=== PATIENT | male | born 1980 ===

== ENCOUNTER 2019-12-12 10:41 | Emergency (ER) | payer OTHER, SELFPAY ==
[2019-12-12 10:43] VITALS: BP 153/89; PULSE 89; RESP 16; TEMP 36.4; O2SAT 99; BMI 25.3
--- NOTE | 2019-12-12 11:02 | ED_ITS ---
HPI - Back Pain/Injury General: Chief Complaint: Back Pain/Injury Stated Complaint: back pain Time Seen by Provider: 12/12/19 10:53 History of Present Illness: HPI Narrative: Patient reports that last month he had a accident where he fell and scratched his back and hurt his back with a strain. Patient reports that he has been trying to work out the muscle but it continues to be real tight and can get some relief with adjustment but then it seems to return to the discomfort. Patient appears well. Patient appears in no acute distress. Review of Systems General: Reports: 10 or more systems reviewed and unremarkable except in HPI and below Musc: Reports: back pain Physical Exam Const: COMMON NORMALS: no apparent distress and oriented x3 GENERAL APPEARANCE: cooperative HENMT: COMMON NORMALS: normocephalic, external ears normal, EAC's normal, TM's normal bilaterally and external nose normal HEAD & SCALP: normal to inspection and normocephalic FACE & SINUS: normal facial exam NOSE: external nose normal GENERAL EAR: hearing not grossly impaired EXTERNAL EAR: Yes external ears normal EXTERNAL AUDITORY CANAL: EAC's normal TYMPANIC MEMBRANE: TM's normal bilaterally MOUTH: oral and palatal mucosa normal THROAT: posterior oropharynx normal Eye: COMMON NORMALS: PERRL and EOMs intact bilaterally PUPIL: Yes PERRL Neck/C-Spine: COMMON NORMALS: full ROM and no lymphadenopathy Lymph: LYMPHATIC: no lymphedema noted Chest: COMMONS NORMALS: inspection of chest normal and palpation of chest normal Resp: COMMON NORMALS: normal respiratory effort and clear to auscultation bilaterally AUSCULTATION: clear to auscultation bilaterally Cardio: COMMON NORMALS: regular rate and regular rhythm RATE: regular rate RHYTHM: regular rhythm GI: COMMON NORMALS: normal to inspection, nondistended, normoactive bowel sounds and non-tender : COMMON NORMALS: Yes no CVA tenderness BLADDER/KIDNEY EXAM: Yes no CVA tenderness Back/Pelvis: COMMON NORMALS: no CVA tenderness LUMBAR SPINE/LOWER BACK: Yes paraspinal muscle tenderness Lumbar paraspinal muscle tenderness: left (with tightness) Extremity: COMMON NORMALS: normal to inspection GENERAL: No edema Neuro: COMMON NORMALS: oriented x3, moves all extremities and no focal motor deficits Psych: COMMON NORMALS: mental status grossly normal and cooperative Skin: COMMON NORMALS: no rashes or lesions noted GENERAL SKIN EXAM: no rashes or lesions noted Course Vital Signs: Vital signs: Vital Signs Temperature 97.5 F L 12/12/19 10:43 Pulse Rate 89 12/12/19 10:43 Respiratory Rate 16 12/12/19 10:43 Blood Pressure 153/89 12/12/19 10:43 Pulse Oximetry 99 12/12/19 10:43 MDM - Back Pain/Injury MDM Narrative: Medical decision making narrative: Patient comes in today for complaints of mid to lower back pain. On exam we note some muscle tightness and tenderness in the left paraspinous muscles of the back. No vertebral tenderness on palpation. Patient moves all extremities well. Differential diagnosis includes intervertebral disc disease, facet arthropathy, muscle strain. Reviewed exam with patient recommended treatment with anti-inflammatories and muscle relaxer. Patient should follow-up with primary care for further evaluation and probable referral to physical therapy. Discharge Plan Discharge Patient Disposition: Home, Self-Care Clinical Impression: Strain of lumbar region Qualifiers: Encounter type: initial encounter Qualified Code(s): S39.012A - Strain of muscle, fascia and tendon of lower back, initial encounter Condition: Stable Prescriptions: New diclofenac sodium 75 mg tablet,delayed release (DR/EC) 75 mg PO BID Qty: 20 RF: 0 tizanidine 4 mg capsule 4 mg PO Q8H PRN (Reason: muscle spasticity) Qty: 20 RF: 0 Discharge Orders: Discharge Order (Routine); Ordered 12/12/19 Ordered By: Damien Coughlin Discharge Diet: Usual diet Discharge Activity: Resume usual activity Activity Restrictions/Additional Instructions: Activity as tolerated Gentle stretching and range of motion exercise Follow-up with primary care for referral to PT or other recommendations Return to ER for high fever or new concerns Case management will assist for referral Coding Level of Care Code ED Secretary Of Police for Estela Foreman Exam Problem Focused
[2019-12-12] MEDS: ketorolac 30 mg/mL INJ IM (11:15)
[2019-12-12] MEDS: orphenadrine 30 mg/mL Inj 2 mL 60 MG IM (11:16)
[2019-12-12 11:23] VITALS: BP 123/99; PULSE 104; RESP 16
--- NOTE | 2019-12-15 13:18 | DCPLANNER ---
manager chemical had message to speak with patient about getting established with a primary care physician. manager chemical called [phone], spoke with Sahra, left message for patient to return briefcase sewer phone call.
== END 2019-12-12 11:23 | disposition home or self-care (01) ==
LOC: ER 11:22
PROVIDERS: Emergency Provider Nurse Practitioner Family
DX: S39.012A Strain of muscle, fascia and tendon of lower back, initial encounter (principal); W19.XXXA Unspecified fall, initial encounter
CPT/HCPCS: 96372; 99281; J1885; J2360

== ENCOUNTER 2022-07-10 06:00 | Outpatient (RCR) | payer OTHER, SELFPAY | END 2022-08-01 23:59 | disposition home or self-care (01) | LOC: SOT 06:00 | PROVIDERS: PCP Nurse Practitioner Family; Visit Provider Plastic Surgery Surgery of the Hand | DX: S67.22XD Crushing injury of left hand, subsequent encounter (principal) | CPT/HCPCS: 97110; 97166 ==

== ENCOUNTER 2022-08-02 06:00 | Outpatient (RCR) | payer OTHER, SELFPAY | END 2022-08-31 23:59 | disposition home or self-care (01) | LOC: SOT 06:00 | PROVIDERS: PCP Nurse Practitioner Family; Visit Provider Plastic Surgery Surgery of the Hand | DX: S67.22XD Crushing injury of left hand, subsequent encounter (principal); X58.XXXD Exposure to other specified factors, subsequent encounter | CPT/HCPCS: 97110; 97140 ==

== ENCOUNTER 2022-09-01 06:00 | Outpatient (RCR) | payer OTHER, SELFPAY | END 2022-10-01 23:59 | disposition home or self-care (01) | LOC: SOT 06:00 | PROVIDERS: PCP Nurse Practitioner Family; Visit Provider Plastic Surgery Surgery of the Hand | DX: S67.22XD Crushing injury of left hand, subsequent encounter (principal); X58.XXXD Exposure to other specified factors, subsequent encounter | CPT/HCPCS: 97110; 97140 ==

== ENCOUNTER 2022-09-11 10:37 | Outpatient (CLI) | payer OTHER, SELFPAY ==
--- NOTE | 2022-09-11 10:48 | XRR_ITS ---
PROCEDURE INFORMATION: Exam: XR Left Hand Exam date and time: 09/11/2022 11:00 AM Age: 41 years old Clinical indication: Injury or trauma; Other: Crushed in machine; Crushing; Left; Injury date: 05/2022; Injury details: Lt hand was crushed in a machine in May 2022, f/u; Prior surgery; Additional info: Fractures TECHNIQUE: Imaging protocol: Radiologic exam of the Left hand. Views: 3 or more views. COMPARISON: CR XR hand LT min 3V* [id number] 05/14/2022 2:04 PM FINDINGS: Bones/joints: Interval healing of fracture lines involving the 2nd through 5th finger proximal phalanges. Old healed fracture deformities of the 4th and 5th metacarpals are again noted. Small ossific densities are again seen projecting over the soft tissues in the thenar region. No new fracture or dislocation identified. Mild soft tissue swelling is present. Soft tissues: See Bones/joints finding. XR/XR hand LT min 3V* [id number] IMPRESSION: Interval healing of the fractures involving the 2nd through 5th proximal phalanges.
== END 2022-09-11 10:38 | disposition home or self-care (01) ==
LOC: RAD 10:38
PROVIDERS: PCP Nurse Practitioner Family; Visit Provider Plastic Surgery Surgery of the Hand
DX: S62.617D Displaced fracture of proximal phalanx of left little finger, subsequent encounter for fracture with routine healing (principal); S62.615D Displaced fracture of proximal phalanx of left ring finger, subsequent encounter for fracture with routine healing; S62.613D Displaced fracture of proximal phalanx of left middle finger, subsequent encounter for fracture with routine healing; S62.611D Displaced fracture of proximal phalanx of left index finger, subsequent encounter for fracture with routine healing; X58.XXXD Exposure to other specified factors, subsequent encounter
CPT/HCPCS: 73130

== ENCOUNTER 2022-10-02 06:00 | Outpatient (RCR) | payer OTHER, SELFPAY | END 2022-10-31 23:59 | disposition home or self-care (01) | LOC: SOT 06:00 | PROVIDERS: PCP Nurse Practitioner Family; Visit Provider Plastic Surgery Surgery of the Hand | DX: S67.22XD Crushing injury of left hand, subsequent encounter (principal); W23.0XXD Caught, crushed, jammed, or pinched between moving objects, subsequent encounter | CPT/HCPCS: 97018; 97110; 97140 ==

== ENCOUNTER 2022-11-01 06:00 | Outpatient (RCR) | payer OTHER, SELFPAY | END 2022-12-01 23:59 | disposition home or self-care (01) | LOC: SOT 06:00 | PROVIDERS: PCP Nurse Practitioner Family; Visit Provider Plastic Surgery Surgery of the Hand | DX: S67.22XD Crushing injury of left hand, subsequent encounter (principal); X58.XXXD Exposure to other specified factors, subsequent encounter | CPT/HCPCS: 97018; 97110; 97140 ==

== ENCOUNTER 2023-05-06 17:38 | Inpatient (IN) | payer MEDICAID, SELFPAY ==
[2023-05-06 17:42] VITALS: BP 142/96; PULSE 85; RESP 18; TEMP 36.8; O2SAT 99; BMI 25.7
--- NOTE | 2023-05-06 18:34 | ED.C_ITS ---
HPI - Psych General: Chief Complaint: Psychiatric Symptoms Stated Complaint: AMADO DOLAN Time Seen by Provider: 05/06/23 17:59 Source: patient Mode of arrival: ambulatory Limitations: no limitations History of Present Illness: This 42-year-old male presents to the ER stating that he just wants to . On further questioning, he notes that he has been having these thoughts for weeks. He notes that he walked into the ER because he is no longer safe out there . Patient moved out of his home about 3 weeks ago because there are people out there to get him. He has been homeless since then. He states that he was in senior living for 2 months and got out about a month ago. Patient adds that he was in senior care for a total of 14 years due to multiple offenses. He has an ankle monitor due to unlawful possession of firearms. Throughout my encounter with him, patient kept repeatedly stating that there were people out to get him and that if he walks out of the ER, he would not go far before someone shoots him . He states that he has not eaten since yesterday. When I offered to get him something to eat, patient flat out refused. He believes our food is poisoned. He has a past history of suicide attempt, does not currently have a psychiatrist and is not taking any medications. Associated symptoms: Reports visual hallucinations and suicidal ideation Review of Systems Const: Denies: chills, body aches or change in appetite Eyes: Denies: change in vision or eye discharge ENMT: Denies: throat pain, dental pain or nasal discharge Card: Denies: chest pain or lightheadedness : Denies: dysuria Musc: Denies: neck pain or back pain Neuro: Denies: headache(s) or weakness in extremities Psych: Reports: paranoia, visual hallucinations, suicidal ideation and other [place]/Lymph: Denies: easy bruising All/Imm: Denies: urticaria, tongue swelling or facial swelling PFSH ED PFSH: Medical History Epilepsy Family History Grandfather Cancer colon Grandmother Cancer lung Denies family history of Diabetes CAD (coronary artery disease) Anesthesia complication Bleeding disorder Social History Smoking and tobacco status: current every day smoker Alcohol intake: never Substance/Drug Use: never Lives independently: Yes Marital status: Single Current occupational status: employed Physical Exam Const: COMMON NORMALS: no acute distress, patient oriented x3, no limitations and alert HENMT: COMMON NORMALS: normocephalic HEAD & SCALP: normocephalic Eye: COMMON NORMALS: EOMs intact bilaterally Neck/C-Spine: COMMON NORMALS: full ROM and supple Chest: COMMONS NORMALS: normal inspection of the chest Resp: COMMON NORMALS: normal respiratory effort, No retractions, No use of accessory muscles and clear to auscultation bilaterally AUSCULTATION: clear to auscultation bilaterally Cardio: COMMON NORMALS: regular rate, regular rhythm and No murmurs present (Cardio) RATE: regular rate RHYTHM: regular rhythm GI: COMMON NORMALS: Normal to inspection, nondistended, normoactive bowel sounds present and non-tender : COMMON NORMALS: Yes no CVA tenderness BLADDER/KIDNEY EXAM: Yes no CVA tenderness Back/Pelvis: COMMON NORMALS: no CVA tenderness and no thoracic nor lumbar tenderness Extremity: GENERAL: Yes normal exam except as noted Neuro: COMMON NORMALS: patient oriented x3 and no focal motor deficits SENSORIUM/ORIENTATION: Yes alert Psych: COMMON NORMALS: cooperative MOOD & AFFECT: Yes anxious and Yes fearful OTHER: Patient has paranoid delusions. Course Vital Signs: Vital signs: Vital Signs Temperature 98.4 F 05/06/23 21:33 Pulse Rate 100 05/06/23 21:33 Respiratory Rate 20 H 05/06/23 21:33 Blood Pressure 131/86 05/06/23 21:33 Pulse Oximetry 95 05/06/23 21:33 Oxygen Delivery Me thod Room Air 05/06/23 22:27 MDM - Psych Medical Decision Making Medical decision making: History as above. Patient is obviously delusional and believes that people are out to kill him. He is quite irrational with his thinking. I believe that he will benefit from inpatient psychiatric evaluation and treatment. Case discussed with Dr. Rubio who accepted patient for admission. Lab Data 05/06/23 18:52 05/06/23 18:52 Laboratory Results WBC 10.5 10^3/uL (4.0-10.0) H 05/06/23 18:52 RBC 5.08 10^6/uL (4.1-5.3) 05/06/23 18:52 Hgb 15.1 g/dL (11.7-16.6) 05/06/23 18:52 Hct 45.0 % (42.0-52.0) 05/06/23 18:52 MCV 88.6 fl (80-94) 05/06/23 18:52 MCH 29.7 pg (28.0-34.0) 05/06/23 18:52 MCHC 33.6 g/dL (30.0-36.0) 05/06/23 18:52 RDW 12.3 % (12.1-15.1) 05/06/23 18:52 Plt Count 249 10^3/cmm (130-400) 05/06/23 18:52 MPV 9.5 fL (7.4-10.4) 05/06/23 18:52 Neut % (Auto) 71.1 % 05/06/23 18:52 Lymph % (Auto) 22.6 % 05/06/23 18:52 [place] % (Auto) 5.1 % 05/06/23 18:52 Eos % (Auto) 0.6 % 05/06/23 18:52 Baso % (Auto) 0.2 % 05/06/23 18:52 Neut # (Auto) 7.45 10^3/uL (1.8-7.7) 05/06/23 18:52 Lymph # (Auto) 2.4 10^3/uL (0.8-4.8) 05/06/23 18:52 [place] # (Auto) 0.5 10^3/uL (0.2-0.9) 05/06/23 18:52 Eos # (Auto) 0.1 10^3/uL (0.0-0.8) 05/06/23 18:52 Baso # (Auto) 0.0 10^3/uL (0.0-0.1) 05/06/23 18:52 Nucleated RBC % (auto) 0 % 05/06/23 18:52 Nucleated RBCs # 0.0 /100WBC 05/06/23 18:52 Sodium 138 mmol/L (136-145) 05/06/23 18:52 Potassium 3.3 mmol/L (3.5-5.1) L 05/06/23 18:52 Chloride 102 mmol/L (98-107) 05/06/23 18:52 Carbon Dioxide 22 mmol/L (22-29) 05/06/23 18:52 Anion Gap 17.3 (5-19) 05/06/23 18:52 BUN 10 mg/dL (6-20) 05/06/23 18:52 Creatinine 0.7 mg/dL (0.7-1.2) 05/06/23 18:52 GFR Calculation 123.7 mL/min (90-130) 05/06/23 18:52 Glucose 83 mg/dL (65-115) 05/06/23 18:52 Calculated Osmolality 284 mOsm/kg (285-295) L 05/06/23 18:52 Calcium 8.7 mg/dL (8.5-10.5) 05/06/23 18:52 Total Bilirubin 0.3 mg/dL (0.15-1.2) 05/06/23 18:52 AST 16 U/L (0-40) 05/06/23 18:52 ALT 15 U/L (0-41) 05/06/23 18:52 Alkaline Phosphatase 70 U/L (40-130) 05/06/23 18:52 Total Protein 7.0 g/dL (6.6-8.7) 05/06/23 18:52 Albumin 4.5 g/dL (3.5-5.2) 05/06/23 18:52 Globulin 2.5 g/dL (1.3-4.6) 05/06/23 18:52 Urine Color Light yellow (Yellow) 05/06/23 17:58 Urine Appearance Clear (CLEAR) 05/06/23 17:58 Urine pH 7 (5-7) 05/06/23 17:58 Ur Specific [place] 1.005 (1.005-1.030) 05/06/23 17:58 Urine Protein Neg (Negative) 05/06/23 17:58 Urine Glucose (UA) Norm (Normal) 05/06/23 17:58 Urine Ketones Negative (Negative) 05/06/23 17:58 Urine Blood Neg (Negative) 05/06/23 17:58 Urine Nitrate Negative (Negative) 05/06/23 17:58 Urine Bilirubin Neg (Negative) 05/06/23 17:58 Urine Urobilinogen Norm mg/dL (Negative) 05/06/23 17:58 Ur Leukocyte Esterase Negative (Negative) 05/06/23 17:58 Salicylates 0.5 mg/dL (3-10) L 05/06/23 18:52 Urine Opiates Screen Negative ng/mL (Negative) 05/06/23 17:58 Acetaminophen < 5.0 ug/mL (10-30) L 05/06/23 18:52 Ur Barbiturates Screen Negative ng/mL (Negative) 05/06/23 17:58 Ur Phencyclidine Scrn Negative ng/mL (Negative) 05/06/23 17:58 Ur Amphetamines Screen Negative ng/mL (Negative) 05/06/23 17:58 U Benzodiazepines Scrn Negative ng/mL (Negative) 05/06/23 17:58 Urine Cocaine Screen Negative ng/mL (Negative) 05/06/23 17:58 U Marijuana (THC) Screen Negative ng/mL (Negative) 05/06/23 17:58 Ethyl Alcohol < 10 mg/dL (0-10) 05/06/23 18:52 Discharge Plan Discharge Patient Disposition: Admitted As Inpatient Admit Provider: Randall Rubio Clinical Impression: Paranoid delusion Condition: Stable Coding Level of Care Code ED Emergency Dispatch Operator for Estela Foreman
[2023-05-06 19:00] LABS: Basophils % 0.2 %; Eosinophils # 0.1 10^3/uL (0.0-0.8); Eosinophils % 0.6 %; Hemoglobin 15.1 g/dL (11.7-16.6); Lymphocytes # 2.4 10^3/uL (0.8-4.8); Lymphocytes % 22.6 %; Mean Corpuscular HGB Conc 33.6 g/dL (30.0-36.0); Mean Corpuscular Hemoglobin 29.7 pg (28.0-34.0); Mean Corpuscular Volume 88.6 fl (80-94); Mean Platelet Volume 9.5 fL (7.4-10.4); Monocytes # 0.5 10^3/uL (0.2-0.9); Monocytes % 5.1 %; Neutrophils # 7.45 10^3/uL (1.8-7.7); Neutrophils % 71.1 %; Nucleated Red Blood Cells % 0 %; Platelet Count 249 10^3/cmm (130-400); Red Blood Count 5.08 10^6/uL (4.1-5.3); Red Cell Distribution Width 12.3 % (12.1-15.1); White Blood Count 10.5 10^3/uL (4.0-10.0)
[2023-05-06 19:23] LABS: Alanine Aminotransferase 15 U/L (0-41); Albumin Level 4.5 g/dL (3.5-5.2); Alkaline Phosphatase 70 U/L (40-130); Anion Gap 17.3 (5-19); Aspartate Amino Transferase 16 U/L (0-40); Blood Urea Nitrogen 10 mg/dL (6-20); Calcium 8.7 mg/dL (8.5-10.5); Carbon Dioxide 22 mmol/L (22-29); Chloride 102 mmol/L (98-107); Globulin 2.5 g/dL (1.3-4.6); Glomerular Filtration Rate 123.7 mL/min (90-130); Glucose 83 mg/dL (65-115); Osmolality Calculated 284 mOsm/kg (285-295); Potassium 3.3 mmol/L (3.5-5.1); Salicylate 0.5 mg/dL (3-10); Sodium 138 mmol/L (136-145); Total Bilirubin 0.3 mg/dL (0.15-1.2)
[2023-05-06 19:25] LABS: Acetaminophen < 5.0 ug/mL (10-30); Alcohol Level < 10 mg/dL (0-10)
[2023-05-06 20:03] LABS: Add Urine Microscopic? NO; Charge for UA Resulting for Rev
[2023-05-06 20:05] LABS: Bilirubin Urine Neg (Negative); Blood Urine Neg (Negative); Glucose Urine UA Norm (Normal); Ketones Urine Negative (Negative); Leukocyte Esterase Urine Negative (Negative); Nitrate Urine Negative (Negative); Protein Urine Neg (Negative); Specific Gravity, Urine 1.005 (1.005-1.030); Urine Appearance Clear (CLEAR); Urine Color Light yellow (Yellow); Urobilinogen Urine Norm (Negative); pH Urine 7 (5-7)
[2023-05-06 20:14] LABS: Amphetamines Screen Urine Negative (Negative); Barbiturates Screen Urine Negative (Negative); Benzodiazepines Screen Urine Negative (Negative); Cocaine Screen Urine Negative (Negative); Opiate Screen Urine Negative (Negative); PCP Screen Urine Negative (Negative); THC Screen Urine Negative (Negative)
--- NOTE | 2023-05-06 20:23 | PC.NURSE ---
Pt served copy of 96 rights. Pt voiced concern regarding ankle bracelet. Pt requested this nurse and security to contact Dora stevezak Heathertj Prescott [phone]. Heather states that ankle bracelet is a tamper resistance device will will 'beep' if pt tries to take it off or apart. Heather states the device does need to charge daily and a complete charge should last up to 24 hours. Heather states the bracelet light will turn red and vibrate when needing a charged.
[2023-05-06 21:33] VITALS: BP 131/86; PULSE 100; RESP 20; TEMP 36.9; O2SAT 95
--- NOTE | 2023-05-06 22:48 | PC.NURSE ---
Pt admitted to [facility], brought by security and RN via w/c. Pt is very anxious, and guarded states I just don't feel like living anymore . This has been going on for a minute . Pt denies all medication or drugs prescribed or otherwise being used. Pt states I can't be in a room w/anyone else, I will hurt them . Pt presents w/ankle bracelet monitor to E, for which he states he is on probation for unlawful possession of a firearm . During admission pt also states that he can't have a roommate d/t this is going to be his home from now own. Pt does admit to hearing voices telling him they're going to kill you and that he is hallucinating however when asked to describe what he is seeing he states everything . Pt admits that he took pills earlier today to try to kill himself, but didn't tell anybody , pt did not admit this in ER. When asked what the pt took, he stated I won't admit to what . Pt remains paranoid, anxious, and guarded. Pt did eat two turkey sandwiches, a bag of doritos, and drank a lemonaid.
[2023-05-07 06:00] VITALS: BP 133/84; PULSE 75; RESP 18; TEMP 36.6; O2SAT 97
--- NOTE | 2023-05-07 09:14 | PC.OT ---
OT EVALUATION HELD THIS DATE PER NURSING; PER NURSING-PATIENT WAS THREATENING TOWARDS STAFF LAST EVENING; IS SLEEPING NOW.
--- NOTE | 2023-05-07 09:46 | PC.NURSE ---
Addendum entered by Hali Escalante RN 05/07/23 10:00: ALSO, DURING THIS ASSESSMENT PT WAS ASKED ABOUT VISUAL AND AUDIO HALLUCINATIONS. PT STATES THAT HE SEES MOVEMENTS AND HE HEARS SOMEONE TELLING HIM THAT THEY ARE GOING TO KILL HIM. PT DENIES MEDICATION AT THIS TIME. Original Note: DURING NURSING SHIFT ASSESSMENT PT WAS COOPERATIVE. PT BECAME AGITATED WHEN ASKED IF WAS THINKING OF HURTING HIMSELF OR OTHERS PT STATED IF I HAVE TO HURT SOMEONE I WILL . THIS NURSE REPHRASED THE QUESTION AND STATED ARE YOU PLANNING ON HURTING SOMEONE IN THIS MOMENT? PT STATED NO AND WHAT DO YOU MEAN DO I WAN TO HURT MYSELF? THATS WHY I CAME HERE. THIS NURSE EDUCATED THE PT THAT THIS IS AN ASSESSMENT QUESTION AND WILL BE ASKED TO HIM FREQUENTLY HERE TO HELP ASSESS HIS PROGRESS HERE. PT THEN STATED YES I WANT TO HURT MYSELF, BUT NO I WILL NOT DO IT HERE. PT CURRENT NEEDS ARE MET.
[2023-05-07] MEDS: nicotine 2 mg Gum BUCCAL ×4 (13:06→19:27)
[2023-05-07 14:00] VITALS: BP 127/79; PULSE 78; RESP 18; TEMP 36.9; O2SAT 97
--- NOTE | 2023-05-07 17:05 | P.NPUHP_ITS ---
Providers/Chief Complaint Admitting Physician: Randall Rubio MD Chief Complaint: MHE, SI HPI NPU History of Present Illness David Cohen is a 42 year old male who presented to the emergency department stating that he wished to . He was admitted to the neuropsychiatric unit for further evaluation and treatment involuntarily. He had reported that he has been having thoughts of killing himself for several weeks. He was reporting that he had left his home about 1 month ago stating that people were trying to hurt him. He had reported having lived with a friend afterwards for 3 weeks but had been truly homeless for about 1 week. He states that he has been repeatedly concerned that people are trying to shoot him dad and stated that he has been thinking about doing it himself in stead of him being shot by them. He had reported that he had felt that he had been poisoned and reported that he has been seeing things. The patient had reported no recent drug or alcohol use. His urine was negative for any drugs or alcohol. He reports that he has been on an ankle monitor because he was a threat to flee the state and stated that he has had numerous incarcerations for a myriad of offenses. He had reported recently attempting to work and stated that he had worked 1 day and felt that the people there had poisoned him. The patient was a less than adequate historian. Patient had reported significant weight loss stating that he had been concerned about other people poisoning him. Past psychiatric history: He had reported having 1 previous hospitalization psychiatrically. He denied any history of outpatient psychiatric treatment. Allergies: No known drug allergies medical history: None. Surgical history: Left hand reportedly crushed in a work-related injury. Current medications: None Legal history: He currently has an ankle monitor on and reports a history of multiple years spent in incarcerated. Drug and alcohol history: He had reported the use of alcohol in the past but r eports no current use of alcohol or illicit drugs. He had intimated possible use of illicit drugs during his adolescence. Social history: He was raised in [place]. He had lived with his father after his parents are . He had dropped out of school. He had stated having some problems with learning and states that he had been placed on Ritalin for problems with his attention span. He has 1 brother and 2 stepsiblings. He reports that he is currently unemployed and has struggled with maintaining a job. He reports that he moved to [place] approximately 6 years ago. He did not endorse any history of sexual physical or emotional abuse. Meds NPU Home Medications Medication Instructions Recorded Confirmed Last Taken Type No Known Home Medications 05/06/23 05/06/23 Unknown History Allergies Allergy/AdvReac Type Severity Reaction Status Date / Time No Known Allergies Allergy Verified 05/06/23 17:42 PFSH NPU PFSH: Medical History Epilepsy Family History Grandfather Cancer colon Grandmother Cancer lung Denies family history of Diabetes CAD (coronary artery disease) Anesthesia complication Bleeding disorder Social History Smoking and tobacco status: current every day smoker Alcohol intake: never Substance/Drug Use: never Lives independently: Yes Marital status: Single Current occupational status: employed Mental Status Exam MSE Comments: Is a healthy male who appeared his stated age he was sitting in his bedroom with intermittent eye contact with no evidence of any abnormal involuntary motor movements tics or tremors. He was a relatively poor historian and repeatedly asking questions and asking why do want to know . His speech was normal in regards to rate rhythm and prosody. There was evidence of psychomotor agitation. He described his mood as upset. His affect was flat. He endorsed suicidal ideation with no active plan. He denied any homicidal ideation although he stated that he would kill someone if they were roommate of his. There was clear evidence of delusional thinking and active paranoia he had endorsed auditory hallucinations and did at times appear to be responding to internal stimuli. His insight and judgment are impaired. His impulse control is poor. His recent remote memory are grossly intact though not formally teste d. His attention span was variable. Vitals/I&O/Wt Last Vital Signs Temp 98.4 F 05/07/23 14:00 Pulse 78 05/07/23 14:00 Resp 18 05/07/23 14:00 BP 127/79 05/07/23 14:00 Pulse Ox 97 05/07/23 14:00 O2 Del Method Room Air 05/07/23 06:00 Weight last 48 hrs Weight 86.183 kg Data NPU 05/06/23 18:52 05/06/23 18:52 A&P Assessment and plan (1) Paranoid delusion: (2) Psychotic disorder: Plan This is a 42-year-old male with a history of previous treatment for ADHD admitted with active psychotic symptoms with active paranoia and bizarre delusions. He is involuntarily hospitalized and we will continue to monitor the patient. He is currently refusing medications. 1.? ?Engage? patient in individual ,milieu, and group therapy ?2. ? We will attempt to gather collateral information from previous providers ?3. ? TO-15 minute checks on the unit. ?4.? Recommend sober living treatment at the highest level of care to which the patient is willing to commit. Involuntary Hold Information 96 Hour Hold: 96 Hour Involuntary Admission: Yes 96 Hour Hold Ending Date: 05/10/23 96 Hour Hold Ending Time: 20:00 Attestations NPU Medical Necessity Statement*: Inpatient hospitalization is medically necessary and deemed to be the clinically appropriate intervention at this time. We will initiate medications and make changes as indicated.? He will be in the hospital for over 2 midnights.? His likely length of stay 7-10 days. Coding Level of Care Code Acute Code for [facility] Fwd Diagnoses Paranoid delusion F22 Psychotic disorder F29
[2023-05-07 22:00] VITALS: BP 131/91; PULSE 74; RESP 16; TEMP 36.6; O2SAT 99
[2023-05-08 06:00] VITALS: BP 123/80; PULSE 89; RESP 15; TEMP 36.7; O2SAT 96
--- NOTE | 2023-05-08 09:28 | PC.NURSE ---
PT CURRENTLY STATES THAT HE IS HEARING PEOPLE TELL HIM HE IS A MAN. PT ALSO STATES THAT HE IS STILL THINKING OF HURTING HIMSELF. PT STATES THAT HE DOES NOT CURRENTLY HAVE A PLAN TO HURT HIMSELF ON THIS UNIT. PT STATES THAT HE STILL HAS A PLAN FOR OUTSIDE THE UNIT. PT UNWILLINGLY TO EXPLAIN THEN STATED I JUST WANT TO SLEEP RIGHT NOW.
[2023-05-08] MEDS: nicotine 2 mg Gum BUCCAL ×4 (11:21→20:52)
[2023-05-08 14:00] VITALS: BP 143/92; PULSE 86; RESP 17; TEMP 36.6; O2SAT 97
--- NOTE | 2023-05-08 16:42 | W.PM.NPUPNS ---
Subjective NPU Subjective: The patient is a 42-year-old white male admitted with psychotic disorder not otherwise specified with active paranoia and repeated thoughts that others were trying to kill him. He reported that he was not planning on harming anyone else but still stated that he wanted to . He remained minimally cooperative and was isolating himself in the room. He had continued to appear somewhat hostile and paranoid while repeatedly asking the web content writer of this note was asking so many questions. He reported that he had difficulties with sleep and would like something to help with his worries and thoughts. He had not engaged in any aggression while on the milieu and had been able to consume food and water on the unit with no complaints about food being poisoned. He had continue to report that he remained concerned that others would seek him out here in the hospital. Mental Status Exam MSE Comments: Is a healthy male who appeared his stated age intense eye contact with no evidence of any abnormal involuntary motor movements tics or tremors. He had multiple tattoos all over his body and on his face. He was a relatively poor historian and was guarded on interview. His speech was normal in regards to rate rhythm and prosody. There was evidence of psychomotor agitation. He described his mood as depressed.. His affect was blunted. He endorsed suicidal ideation with no active plan. He denied any homicidal ideation. There was clear evidence of delusional thinking and active paranoia. He did not endorse any auditory hallucinations although at times he appeared to be responding to internal stimuli. His insight and judgment are impaired. His impulse control is poor. His recent remote memory are grossly intact though not formally tested. His attention span was variable. Vitals/I&O/Wt Last Vital Signs Temp 97.8 F 05/08/23 14:00 Pulse 86 05/08/23 14:00 Resp 17 05/08/23 14:00 BP 143/92 05/08/23 14:00 Pulse Ox 97 05/08/23 14:00 O2 Del Method Room Air 05/08/23 06:00 Weight last 48 hrs Weight 86.183 kg Data NPU 05/06/23 18:52 05/06/23 18:52 A&P Assessment and plan (1) Paranoid delusion: (2) Psychotic disorder: Plan This is a 42-year-old male with a history of previous treatment for ADHD admitted with active psychotic symptoms with active paranoia and bizarre delusions. He is involuntarily hospitalized and we will continue to monitor the patient. He is currently refusing medications. 1.? ?Engage? patient in individual ,milieu, and group therapy ?2. ? Add zyprexa 10mg at night to target psychosis. ?3. ? TO-15 minute checks on the unit. ?4.? Recommend sober living treatment at the highest level of care to which the patient is willing to commit. Involuntary Hold Information 96 Hour Hold: 96 Hour Involuntary Admission: Yes 96 Hour Hold Ending Date: 05/10/23 96 Hour Hold Ending Time: 20:00 Attestations NPU Medical Necessity Statement*: Inpatient hospitalization is medically necessary and deemed to be the clinically appropriate intervention at this time. We will initiate medications and make changes as indicated.? ? His likely length of stay 7-10 days. Coding Level of Care Code Acute Code for g Fwd Diagnoses Paranoid delusion F22 Psychotic disorder F29
[2023-05-08] MEDS: OLANZapine 10 mg TABLET PO (20:49)
[2023-05-08] MEDS: hyDROXYzine 25 mg Capsule 50 MG PO (20:52)
[2023-05-08 21:10] VITALS: BP 145/105; PULSE 89; RESP 18; TEMP 36.9; O2SAT 97
[2023-05-09 06:00] VITALS: RESP 17
[2023-05-09 14:00] VITALS: BP 127/71; PULSE 106; RESP 16; TEMP 36.6; O2SAT 98
--- NOTE | 2023-05-09 16:51 | P.NPUPN_ITS ---
Subjective NPU Subjective: The patient is a 42-year-old white male admitted with psychotic disorder not otherwise specified with active paranoia and repeated thoughts that others were trying to kill him. Patient isolated himself on the milieu. He reported that he continued to be fearful that if he left the hospital he would be . He had also endorsed having thoughts of hurting himself but did not have any thoug hts of hurting anyone else. He had been noncompliant in regards to attending groups. He had normal appetite and did not feel that his food was poisoned here. He had acknowledged being safe here and stated that he had wanted to go home to [place] as his mother had not been doing well. He had spoken with his mother but continued to be hesitant about providing authorization for the team to speak with her. Mental Status Exam MSE Comments: Is a healthy male who appeared his stated age with an intense eye contact with no evidence of any abnormal involuntary motor movements tics or tremors. He had multiple tattoos all over his body and on his face. He was a relatively poor historian and remained very guarded on interview. His speech was normal in regards to rate rhythm and prosody. There was evidence of psychomotor agitation. He described his mood as depressed. His affect was blunted. He endorsed suicidal ideation with no active plan. He denied any homicidal ideation. There was clear evidence of delusional thinking and active paranoia with ideas of reference. He did not endorse any auditory hallucinations although at times he appeared to be responding to internal stimuli. His insight and judgment are impaired. His impulse control is poor. His recent and remote memory are grossly intact though not formally tested. His attention span was variable. Vitals/I&O/Wt Last Vital Signs Temp 97.8 F 05/09/23 14:00 Pulse 106 H 05/09/23 14:00 Resp 16 05/09/23 14:00 BP 127/71 05/09/23 14:00 Pulse Ox 98 05/09/23 14:00 O2 Del Method Room Air 05/09/23 14:00 Data NPU 05/06/23 18:52 05/06/23 18:52 A&P Assessment and plan (1) Paranoid delusion: (2) Psychotic disorder: Plan This is a 42-year-old male with a history of previous treatment for ADHD admitted with active psychotic symptoms with active paranoia and bizarre delusions. He is involuntarily hospitalized and we will continue to monitor the patient. He is currently refusing medications. 1.? ?Engage? patient in individual ,milieu, and group therapy ?2. ? Reduce zyprexa 7.5mg at night with addition of Invega 3mg daily in daytime (consider [facility] use of IM medications) ?3. ? TO-15 minute checks on the unit. ?4.? Recommend sober living treatment at the highest level of care to which the patient is willing to commit. Involuntary Hold Information 96 Hour Hold: 96 Hour Involuntary Admission: Yes 96 Hour Hold Ending Date: 05/10/23 96 Hour Hold Ending Time: 20:00 Attestations NPU Medical Necessity Statement*: Inpatient hospitalization is medically necessary and deemed to be the clinically appropriate intervention at this time. We will initiate medications and make changes as indicated.? ? His likely length of stay 7-10 days. Coding Level of Care Code Acute [facility] Paranoid delusion F22 Psychotic disorder F29
[2023-05-09] MEDS: nicotine 2 mg Gum BUCCAL ×2 (17:04→20:35)
[2023-05-09] MEDS: OLANZapine 5 mg TABLET 7.5 MG PO (20:33)
[2023-05-09] MEDS: hyDROXYzine 25 mg Capsule 50 MG PO (20:34)
[2023-05-09 22:00] VITALS: BP 143/85; PULSE 94; RESP 17; O2SAT 96
[2023-05-10] MEDS: paliperidone ER 3 mg Tablet PO ×2 (09:09→17:14)
--- NOTE | 2023-05-10 13:39 | P.NPUPN_ITS ---
Subjective NPU Subjective: The patient is a 42-year-old white male admitted with psychotic disorder not otherwise specified with active paranoia and repeated thoughts that others were trying to kill him. The patient had reported some side effects including constipation and stated that he had some difficulties with pain in his right flank. He stated that he had been feeling more safe here but continued to report that he would be if he were to step outside of the hospital as he had reported that others were waiting for him. The patient had been attending groups today. He reported no concerns about food and states that he had continued to feel worried about his future. He reported that he had communicate d with his mother in [place] and continued to be worried about her care. He had been compliant with medications. Mental Status Exam MSE Comments: Is a healthy male who appeared his stated age with an intense eye contact with no evidence of any abnormal involuntary motor movements tics or tremors. He had multiple tattoos all over his body and on his face. He was less guarded and hostile on interview. His speech was normal in regards to rate rhythm and prosody. There was evidence of psychomotor agitation. He described his mood as depressed. His affect was blunted. He endorsed suicidal ideation with no active plan. He denied any homicidal ideation. There was clear evidence of delusional thinking and active paranoia with ideas of reference. He did not endorse any auditory hallucinations although he did at times appear to be responding to internal stimuli. His insight and judgment are impaired. His impulse control is poor. His recent and remote memory are grossly intact tho ugh not formally tested. His attention span was variable. Vitals/I&O/Wt Last Vital Signs Temp 97.8 F 05/09/23 14:00 Pulse 94 05/09/23 22:00 Resp 17 05/09/23 22:00 BP 143/85 05/09/23 22:00 Pulse Ox 96 05/09/23 22:00 O2 Del Method Room Air 05/09/23 22:00 Data NPU 05/06/23 18:52 05/06/23 18:52 A&P Assessment and plan (1) Paranoid delusion: (2) Psychotic disorder: Plan This is a 42-year-old male with a history of previous treatment for ADHD admitted with active psychotic symptoms with active paranoia and bizarre delu sions. He is involuntarily hospitalized and we will continue to monitor the patient. He is currently refusing medications. 1.? ?Engage? patient in individual ,milieu, and group therapy ?2. ? Reduce zyprexa 5mg at night with Invega 3mg daily in daytime (consider [facility] use of IM invega ) ?3. ? TO-15 minute checks on the unit. Court hearing for continued stay. ?4.? Recommend sober living treatment at the highest level of care to which the patient is willing to commit. 5. Urinalysis, Chem panel Involuntary Hold Information 96 Hour Hold: 96 Hour Involuntary Admission: Yes 96 Hour Hold Ending Date: 05/10/23 96 Hour Hold Ending Time: 20:00 Attestations NPU Medical Necessity Statement*: Inpatient hospitalization is medically necessary and deemed to be the clinically appropriate intervention at this time. We will initiate medications and make changes as indicated.? ? His likely length of stay 7-10 days. Coding Level of Care Code Acute Code for [facility] Fwd Diagnoses Paranoid delusion F22 Psychotic disorder F29
[2023-05-10 14:00] VITALS: BP 120/73; PULSE 105; RESP 20; TEMP 36.8; O2SAT 97
[2023-05-10] MEDS: nicotine 2 mg Gum BUCCAL ×2 (17:44→20:34)
[2023-05-10] MEDS: hyDROXYzine 25 mg Capsule 50 MG PO (18:38)
[2023-05-10] MEDS: OLANZapine 5 mg TABLET PO (20:32)
[2023-05-10 21:08] VITALS: BP 129/87; PULSE 102; RESP 16; TEMP 37.1; O2SAT 96
[2023-05-11 06:00] VITALS: BP 129/83; PULSE 76; RESP 14; TEMP 36.3; O2SAT 95
[2023-05-11] MEDS: paliperidone ER 3 mg Tablet PO ×2 (08:27→17:35)
[2023-05-11] MEDS: nicotine 2 mg Gum BUCCAL (08:27)
--- NOTE | 2023-05-11 08:31 | PC.NURSE ---
PT CURRENTLY DENIES SI/HI/VH. PT DOES ENDORSE AH, WHEN ASKED WHAT THEY WERE SAYING PT STATED THEY ARE TELLING THEY WILL KILL ME. PT WAS CALM AND COOPERATIVE WITH ASSESSMENT AND WILLING TO ANSWER QUESTIONS. PT WAS WILLING TO TAKE MORNING DOSE OF INVEGA.
--- NOTE | 2023-05-11 12:04 | P.NPUPN_ITS ---
Subjective NPU Subjective: The patient is a 42-year-old white male admitted with psychotic disorder not otherwise specified with active paranoia and repeated thoughts that others were trying to kill him. He had stated that he had been hearing a voice and has had that was telling him that others were trying to kill him and stated that this was different than his own voice. The patient reported back pain and reported that he remained constipated. He states that he is worried about everything . He had continue to isolate himself on the milieu with limited communication with his peers on the unit. The patient had reported some side effects including constipation and stated that he had some difficulties with pain in his right flank. He continued to appear unwilling to discuss issues in his life any further although he had stated that he was concerned about his mother at this time. Mental Status Exam MSE Comments: Is a healthy male who appeared his stated age with an intense eye contact with no evidence of any abnormal involuntary motor movements tics or tremors. He had multiple tattoos all over his body and on his face. He he remained guarded on interview. His speech was normal in regards to rate rhythm and prosody. There was evidence of psychomotor agitation. He described his mood as worried. His affect was blunted. He endorsed suicidal ideation with no active plan. He denied any homicidal ideation. There was clear evidence of delusional thinking and active paranoia with ideas of reference. He had endorsed auditory hallucinations stating that others were trying to kill him. He did not appear to be responding to internal stimuli during the interview. Was notable his insight and judgment are impaired. His impulse control is poor. His recent and remote memory are grossly intact though not formally tested. His attention span was variable. Vitals/I&O/Wt Last Vital Signs Temp 97.3 F L 05/11/23 06:00 Pulse 76 05/11/23 06:00 Resp 14 05/11/23 06:00 BP 129/83 05/11/23 06:00 Pulse Ox 95 05/11/23 06:00 O2 Del Method Room Air 05/09/23 22:00 Data NPU 05/06/23 18:52 05/06/23 18:52 A&P Assessment and plan (1) Paranoid delusion: (2) Psychotic disorder: Plan This is a 42-year-old male with a history of previous treatment for ADHD admitted with active psychotic symptoms with active paranoia and bizarre delusions. He is involuntarily hospitalized and we will continue to monitor the patient. He is currently refusing medications. 1.? ?Engage? patient in individual ,milieu, and group therapy ?2. ? Reduce zyprexa 2.5mg at night with Invega increase to 3mg bid in daytime ([facility] of [facility] invega ) ?3. ? TO-15 minute checks on the unit. Court hearing for continued stay. ?4.? Recommend sober living treatment at the highest level of care to which the patient is willing to commit. 5. Urinalysis, Chem panel Involuntary Hold Information 96 Hour Hold: 96 Hour Involuntary Admission: Yes 96 Hour Hold Ending Date: 05/10/23 96 Hour Hold Ending Time: 20:00 Attestations NPU Medical Necessity Statement*: Inpatient hospitalization is medically necessary and deemed to be the clinically appropriate intervention at this time. We will initiate medications and make changes as indicated.? ? His likely length of stay 7-10 days. Coding Level of Care Code Acute Code for [facility] Diagnoses Paranoid delusion F22 Psychotic disorder F29
[2023-05-11] MEDS: hyDROXYzine 25 mg Capsule 50 MG PO (12:50)
[2023-05-11 12:55] LABS: Basophils % 0.3 %; Eosinophils # 0.1 10^3/uL (0.0-0.8); Eosinophils % 1.2 %; Hematocrit 46.9 % (42.0-52.0); Lymphocytes # 1.7 10^3/uL (0.8-4.8); Lymphocytes % 23.8 %; Mean Corpuscular Hemoglobin 29.8 pg (28.0-34.0); Mean Corpuscular Volume 93.1 fl (80-94); Mean Platelet Volume 9.8 fL (7.4-10.4); Monocytes # 0.5 10^3/uL (0.2-0.9); Monocytes % 6.6 %; Neutrophils # 4.95 10^3/uL (1.8-7.7); Neutrophils % 67.8 %; Nucleated Red Blood Cells % 0 %; Platelet Count 219 10^3/cmm (130-400); Red Blood Count 5.04 10^6/uL (4.1-5.3); Red Cell Distribution Width 12.7 % (12.1-15.1); White Blood Count 7.3 10^3/uL (4.0-10.0)
[2023-05-11 12:56] LABS: Add Urine Microscopic? NO; Charge for UA Resulting for Rev
[2023-05-11 13:03] LABS: Bilirubin Urine Neg (Negative); Blood Urine Neg (Negative); Glucose Urine UA Norm (Normal); Ketones Urine Negative (Negative); Leukocyte Esterase Urine Negative (Negative); Nitrate Urine Negative (Negative); Protein Urine Neg (Negative); Urine Appearance Clear (CLEAR); Urine Color Straw (Yellow); Urobilinogen Urine Norm (Negative); pH Urine 6 (5-7)
[2023-05-11] MEDS: docusate sodium 100 mg Capsule PO (13:12)
[2023-05-11 14:00] VITALS: BP 133/87; PULSE 93; RESP 16; TEMP 36.8; O2SAT 98
[2023-05-11] MEDS: OLANZapine 5 mg TABLET 2.5 MG PO (19:51)
[2023-05-11 20:13] VITALS: BP 132/85; PULSE 94; RESP 18; TEMP 37.3; O2SAT 99
[2023-05-12 06:00] VITALS: BP 134/92; PULSE 89; RESP 20; TEMP 36.7; O2SAT 96
[2023-05-12] MEDS: docusate sodium 100 mg Capsule PO (10:01)
[2023-05-12] MEDS: paliperidone ER 3 mg Tablet PO ×2 (10:01→17:45)
--- NOTE | 2023-05-12 12:06 | P.NPUPN_ITS ---
Subjective NPU Subjective: The patient is a 42-year-old white male admitted with psychotic disorder not otherwise specified with active paranoia and repeated thoughts that others were trying to kill him. The patient did continue to complain about back pain. He had reported that he continued to worry about everything. He had been more social on the unit. He continued to state that there were multiple voices that were telling him that he was in danger. He reported not having suicidal thoughts currently but continued to report feeling that his life was in danger. He had reported that his thoughts were moving fast and stated that there were 2 different voices that were communicating with him with no change in the frequency or intensity of the voices. Mental Status Exam MSE Comments: Is a healthy male who appeared his stated age with an intense eye contact with no evidence of any abnormal involuntary motor movements tics or tremors. He had multiple tattoos all over his body and on his face. He he remained guarded on interview. His speech was normal in regards to rate rhythm and prosody. There was evidence of continuous psychomotor agitation. He described his mood as stressed. His affect was blunted. He endorsed no suicidal ideation with no active plan today. He denied any homicidal ideation. There was clear evidence of delusional thinking and active paranoia with ideas of reference. He had endorsed multiple auditory hallucinations stating that others would kill him if he left here. He did appear to be responding to internal stimuli during the interview. His insight and judgment are impaired. His impulse control is poor. His recent and remote memory are grossly intact though not formally tested. His attention span was variable. Vitals/I&O/Wt Last Vital Signs Temp 98.0 F 05/12/23 06:00 Pulse 89 05/12/23 06:00 Resp 20 H 05/12/23 06:00 BP 134/92 05/12/23 06:00 Pulse Ox 96 05/12/23 06:00 O2 Del Method Room Air 05/12/23 06:00 Weight last 48 hrs Weight 92.714 kg Data NPU 05/11/23 12:30 05/06/23 18:52 A&P Assessment and plan (1) Paranoid delusion: (2) Psychotic disorder: Plan This is a 42-year-old male with a history of previous treatment for ADHD admitted with active psychotic symptoms with active paranoia and bizarre delusions. He is involuntarily hospitalized and we will continue to monitor the patient. He is currently refusing medications. 1.? ?Engage? patient in individual ,milieu, and group therapy ?2. ? D/C zyprexa, Invega 3mg bid with plan for IM invega ?3. ? TO-15 minute checks on the unit. Court hearing for continued stay tommorow. ?4.? Recommend sober living treatment at the highest level of care to which the patient is willing to commit. 5. Urinalysis, Chem panel-negative, Involuntary Hold Information 96 Hour Hold: 96 Hour Involuntary Admission: Yes 96 Hour Hold Ending Date: 05/10/23 96 Hour Hold Ending Time: 20:00 Attestations NPU Medical Necessity Statement*: Inpatient hospitalization is medically necessary and deemed to be the clinically appropriate intervention at this time. We will initiate medications and make changes as indicated.? ? His likely length of stay 7-10 days. Coding Level of Care Code Acute Code for [facility] Fwd Diagnoses Paranoid delusion F22 Psychotic disorder F29
[2023-05-12] MEDS: nicotine 2 mg Gum BUCCAL ×2 (13:30→18:05)
[2023-05-12 14:00] VITALS: BP 111/81; PULSE 95; RESP 16; TEMP 37; O2SAT 99
[2023-05-12 20:56] VITALS: BP 135/86; PULSE 98; RESP 18; TEMP 36.9; O2SAT 98
[2023-05-12] MEDS: hyDROXYzine 25 mg Capsule 50 MG PO (21:31)
--- NOTE | 2023-05-12 21:32 | PC.NURSE ---
pt requested anxiety med, Vistaril 50mg po given.
[2023-05-13 06:00] VITALS: BP 137/92; PULSE 91; RESP 18; TEMP 36.5; O2SAT 99
[2023-05-13] MEDS: docusate sodium 100 mg Capsule PO (08:18)
[2023-05-13] MEDS: paliperidone ER 3 mg Tablet PO ×2 (08:18→20:07)
--- NOTE | 2023-05-13 08:20 | PC.NURSE ---
shift assessment stated having some hallucinations but wouldn't elaborate further. med compliant.
[2023-05-13 13:06] VITALS: BP 124/84; PULSE 97; RESP 16; TEMP 36.4; O2SAT 97
[2023-05-13] MEDS: hyDROXYzine 25 mg Capsule 50 MG PO ×2 (13:18→20:06)
--- NOTE | 2023-05-13 13:18 | PC.NURSE ---
PRN VISTARIL 50 MG GIVEN PO PER PT C/O STATED ANXIETY
--- NOTE | 2023-05-13 16:10 | P.NPUPN_ITS ---
Subjective NPU Subjective: The patient is a 42-year-old white male admitted with psychotic disorder not otherwise specified with active paranoia and repeated thoughts that others were trying to kill him. The patient was placed on [address] hearing this afternoon. He continued to report hearing 2 different voices in his head telling him that he was going to if he left here. He had reported feeling very worried . He reported no side effects from his medication. He had mostly stayed to himself on the milieu. He had continued report having suicidal thoughts as well. Mental Status Exam MSE Comments: Is a healthy male who appeared his stated age with an intense eye contact with no evidence of any abnormal involuntary motor movements tics or tremors. He had multiple tattoos all over his body and on his face. He he remained guarded on interview. His speech was normal in regards to rate rhythm and monotone in quality. There was evidence of continuous psychomotor agitation. He described his mood as anxious. His affect was blunted. He endorsed suicidal ideation today with no active plan. He denied any homicidal ideation. There was clear evidence of delusional thinking and active paranoia with ideas of reference. He had endorsed multiple auditory hallucinations stating that others would kill him if he left here. He did appear to be responding to internal stimuli during the interview. His insight and judgment are impaired. His impulse control is poor. His recent and remote memory are grossly intact though not formally tested. His attention span was variable. His insight is poor. Vitals/I&O/Wt Last Vital Signs Temp 97.6 F 05/13/23 13:06 Pulse 97 05/13/23 13:06 Resp 16 05/13/23 13:06 BP 124/84 05/13/23 13:06 Pulse Ox 97 05/13/23 13:06 O2 Del Method Room Air 05/12/23 14:00 Weight last 48 hrs Weight 92.714 kg Data NPU 05/11/23 12:30 05/06/23 18:52 A&P Assessment and plan (1) Paranoid delusion: (2) Psychotic disorder: Plan This is a 42-year-old male with a history of previous treatment for ADHD a dmitted with active psychotic symptoms with active paranoia and bizarre delusions. He is involuntarily hospitalized and we will continue to monitor the patient. He is currently refusing medications. 1.? ?Engage? patient in individual ,milieu, and group therapy ?2. ? Continue Invega 6mg/day with plan for IM invega ?3. ? TO-15 minute checks on the unit. Court hearing for continued stay tommorow. ?4.? Recommend sober living treatment at the highest level of care to which the patient is willing to commit. 5. Urinalysis, Chem panel-negative for infection. Involuntary Hold Information 96 Hour Hold: 96 Hour Involuntary Admission: Yes 96 Hour Hold Ending Date: 05/10/23 96 Hour Hold Ending Time: 20:00 Attestations NPU Medical Necessity Statement*: Inpatient hospitalization is medically necessary and deemed to be the clinically appropriate intervention at this time. We will initiate medications and make changes as indicated.? ? His likely length of stay is 7-10 days. Coding Level of Care Code Acute Code for [facility] Fwd Diagnoses Paranoid delusion F22 Psychotic disorder F29
[2023-05-13 20:28] VITALS: BP 132/91; PULSE 97; RESP 18; TEMP 36.7; O2SAT 99
[2023-05-14 06:00] VITALS: BP 144/88; PULSE 104; RESP 18; TEMP 36.6; O2SAT 99
[2023-05-14] MEDS: nicotine 2 mg Gum BUCCAL (09:52)
[2023-05-14] MEDS: hyDROXYzine 25 mg Capsule 50 MG PO ×3 (09:53→20:15)
[2023-05-14] MEDS: paliperidone ER 3 mg Tablet PO (09:53)
[2023-05-14] MEDS: docusate sodium 100 mg Capsule PO (09:53)
[2023-05-14 14:00] VITALS: BP 133/87; PULSE 84; RESP 16; TEMP 36.8; O2SAT 98
--- NOTE | 2023-05-14 14:57 | P.NPUPN_ITS ---
Subjective NPU Subjective: The patient is a 42-year-old white male admitted with psychotic disorder not otherwise specified with active paranoia and repeated thoughts that others were trying to kill him. The patient had endorsed having suicidal thoughts. He reported that he continued to feel that the voices would eventually be true and that he would put himself in an environment where he would be . He reported that nothing has changed and stated that he felt in someway that he deserves to be . He reported being unable to recall the names of his medications previously prescribed but stated that he had been in the [facility] before and had been taking medications as he had attempted to kill himself. Mental Status Exam MSE Comments: Is a healthy male who appeared his stated age with an intense eye contact with no evidence of any abnormal involuntary motor movements tics or tremors. He had multiple tattoos all over his body and on his face. He he remained guarded and more paranoid today. His speech was normal in regards to rate rhythm and monotone in quality. There was evidence of continuous psychomotor agitation. He described his mood as upset. His affect was intense. He endorsed suicidal ideation today with no active plan. He denied any homicidal ideation. There was clear evidence of delusional thinking and active paranoia with ideas of reference. He had endorsed multiple auditory hallucinations of a command nature. He did appear to be responding to internal stimuli during the interview. His insight and judgment are impaired. His impulse control is poor. His recent and remote memory are grossly intact though not formally tested. His attention span was variable. His insight is poor. Vitals/I&O/Wt Last Vital Signs Temp 98.3 F 05/14/23 14:00 Pulse 84 05/14/23 14:00 Resp 16 05/14/23 14:00 BP 133/87 05/14/23 14:00 Pulse Ox 98 05/14/23 14:00 O2 Del Method Room Air 05/14/23 14:00 Data NPU 05/11/23 12:30 05/06/23 18:52 A&P Assessment and plan (1) Psychotic disorder: (2) Paranoid delusion: Plan This is a 42-year-old male with a history of previous treatment for ADHD admitted with active psychotic symptoms with active paranoia and bizarre delusions. He is involuntarily hospitalized and we will continue to monitor the patient. He is currently refusing medications. 1.? ?Engage? patient in individual ,milieu, and group therapy ?2. ? Increase Invega to 9 mg daily with plan for IM invega. We will add Lexapro 10 mg to target depression. ?3. ? TO-15 minute checks on the unit. Court hearing for continued stay tommorow. ?4.? Recommend sober living treatment at the highest level of care to which the patient is willing to commit. Involuntary Hold Information 96 Hour Hold: 96 Hour Involuntary Admission: Yes 96 Hour Hold Ending Date: 05/10/23 96 Hour Hold Ending Time: 20:00 Attestations NPU Medical Necessity Statement*: Inpatient hospitalization is medically necessary and deemed to be the clinically appropriate intervention at this time. We will initiate medications and make changes as indicated.? ? His likely length of stay is 7-10 days. Coding Level of Care Code Acute Code for g Fwd Diagnoses Psychotic disorder F29 Paranoid delusion F22
[2023-05-14] MEDS: escitalopram 10 mg Tablet PO (17:14)
[2023-05-14] MEDS: paliperidone ER 6 mg Tablet PO (20:15)
[2023-05-14 21:07] VITALS: BP 131/90; PULSE 86; RESP 16; TEMP 36.6; O2SAT 98
[2023-05-15 06:00] VITALS: BP 126/82; PULSE 76; RESP 15; TEMP 36.6; O2SAT 97
[2023-05-15] MEDS: paliperidone ER 3 mg Tablet PO (06:33)
[2023-05-15] MEDS: escitalopram 10 mg Tablet PO (09:19)
[2023-05-15] MEDS: hyDROXYzine 25 mg Capsule 50 MG PO ×3 (09:19→20:03)
[2023-05-15] MEDS: docusate sodium 100 mg Capsule PO (09:19)
[2023-05-15 14:00] VITALS: BP 131/91; PULSE 90; RESP 15; TEMP 36.3; O2SAT 98
--- NOTE | 2023-05-15 14:10 | W.PM.NPUPNS ---
Subjective NPU Subjective: The patient is a 42-year-old white male admitted with psychotic disorder not otherwise specified with active paranoia and repeated thoughts that others were trying to kill him. The patient continues to endorse suicidal ideation. He also reported significant negative thoughts about himself. He reported that the voices in his had continued to tell him that he would be if he left this hospital. He had reported that he simply wished to be left alone but stated that something inside of him told him that he would be and he stated that he could not manage these thoughts and felt that he should kill himself instead. He had stated that he would let staff know if he continued to have these intense suicidal thoughts. Patient had been more open to discussing his stressors with staff but continued to state feeling persecuted by others. He reported that his tattoos made him a target and he stated that it made him feel like others were judging him for his tattoos. Mental Status Exam MSE Comments: Is a healthy male who appeared his stated age with an intense eye contact with no evidence of any abnormal involuntary motor movements tics or tremors. He had multiple tattoos all over his body and on his face. He he remained guarded with continued evidence of paranoia. One of his tattoos had stated that I feel like many people all of the time . His speech was normal in regards to rate rhythm and monotone in quality. There was evidence of mild psychomotor agitation.. He described his mood as okay. His affect was blunted. He endorsed suicidal ideation today with no active plan. He denied any homicidal ideation. There was clear evidence of delusional thinking and active paranoia with ideas of reference. He had endorsed multiple auditory hallucinations of a command nature. He did appear to be responding to internal stimuli during the interview. His insight and judgment are impaired. His impulse control is poor. His recent and remote memory are grossly intact though not formally tested. His attention span was variable. His insight is poor. Vitals/I&O/Wt Last Vital Signs Temp 97.8 F 05/15/23 06:00 Pulse 76 05/15/23 06:00 Resp 15 05/15/23 06:00 BP 126/82 05/15/23 06:00 Pulse Ox 97 05/15/23 06:00 O2 Del Method Room Air 05/15/23 06:00 Data NPU 05/11/23 12:30 05/06/23 18:52 A&P Assessment and plan (1) Psychotic disorder: (2) Paranoid delusion: Plan This is a 42-year-old male with a history of previous treatment for ADHD admitted with active psychotic symptoms with active paranoia and bizarre delusions. He is involuntarily hospitalized and we will continue to monitor the patient. He is currently refusing medications. 1.? ?Engage? patient in individual ,milieu, and group therapy ?2. ? Continue Invega to 9 mg daily with plan for IM invega tommorow at 234mg. Continue Lexapro 10 mg to target depression. ?3. ? TO-15 minute checks on the unit. Court hearing for continued stay tommorow. ?4.? Recommend sober living treatment at the highest level of care to which the patient is willing to commit. Involuntary Hold Information 96 Hour Hold: 96 Hour Involuntary Admission: Yes 96 Hour Hold Ending Date: 05/10/23 96 Hour Hold Ending Time: 20:00 Attestations NPU Medical Necessity Statement*: Inpatient hospitalization is medically necessary and deemed to be the clinically appropriate intervention at this time. We will initiate medications and make changes as indicated.? ? His likely length of stay is 7-10 days. Coding Level of Care Code Acute Code for [facility] Fwd Diagnoses Psychotic disorder F29 Paranoid delusion F22
[2023-05-15] MEDS: nicotine 2 mg Gum BUCCAL ×2 (18:15→20:06)
[2023-05-15] MEDS: paliperidone ER 6 mg Tablet PO (20:03)
[2023-05-15 21:19] VITALS: BP 130/90; PULSE 102; RESP 18; TEMP 36.7; O2SAT 91
[2023-05-16 06:00] VITALS: BP 124/87; PULSE 104; RESP 16; O2SAT 97
[2023-05-16] MEDS: paliperidone ER 3 mg Tablet PO (06:03)
[2023-05-16] MEDS: hyDROXYzine 25 mg Capsule 50 MG PO ×3 (08:25→19:48)
[2023-05-16] MEDS: docusate sodium 100 mg Capsule PO (08:25)
[2023-05-16] MEDS: escitalopram 10 mg Tablet PO (08:25)
[2023-05-16] MEDS: paliperidone palmitate 234 mg Syringe IM (09:00)
--- NOTE | 2023-05-16 09:00 | PC.NURSE ---
Administered Invega Sustenna to patient's left deltoid muscle with no issues. 235mg/1.5mL. Lot [id number]. EXP: 08/25
[2023-05-16 14:00] VITALS: BP 122/85; PULSE 96; RESP 20; TEMP 37.1; O2SAT 97
--- NOTE | 2023-05-16 15:53 | W.PM.NPUPNS ---
Subjective NPU Subjective: Patient presented today reporting that things are going better now he was admitted but that he is still struggling with his psychosis. Still having suicidal thoughts and taking his medication however. We discussed plans moving forward and working with the treatment team on his discharge planning even though that is much further in the future given his homelessness. We discussed rehab and other considerations. Mental Status Exam MSE Comments: This is an overweight white male in hospital scrubs with adequate grooming and intense eye contact. Significant tattooing on exposed skin including the face.No abnormal movements except for mild psychomotor retardation. Cooperative with exam in mild to moderate distress. Speech was decreased rate and volume. Mood described as depressed, affect congruent. Thought process linear with some notable cognitive slowing. Thought content: Patient endorsed suicidal but denied homicidal ideation, there was paranoia reported and paranoid and likely persecutory delusions noted. He endorsed auditory but denied visual hallucinations. Attention and concentration were mostly intact memory appeared somewhat reliable but none were formally tested. He is alert and oriented x3. Insight, judgment and impulse control were limited. Vitals/I&O/Wt Last Vital Signs Temp 98.7 F 05/16/23 14:00 Pulse 96 05/16/23 14:00 Resp 20 H 05/16/23 14:00 BP 122/85 05/16/23 14:00 Pulse Ox 97 05/16/23 14:00 O2 Del Method Room Air 05/16/23 06:00 Data NPU 05/11/23 12:30 05/06/23 18:52 A&P Assessment and plan (1) Psychotic disorder: (2) Paranoid delusion: Plan This is a 42-year-old male with a history of previous treatment for ADHD admitted with active psychotic symptoms with active paranoia and bizarre delusions. He is involuntarily hospitalized and we will continue to monitor the patient. He is currently refusing medications. 1.? ?Engage? patient in individual ,milieu, and group therapy ?2. ? Continue Invega to 9 mg daily with plan for IM invega Sustenna loading dose at 234mg today. Continued Lexapro 10 mg to target depression. ?3. ? TO-15 minute checks on the unit. Court hearing for continued stay tommorow. ?4.? Recommend sober living treatment at the highest level of care to which the patient is willing to commit. Involuntary Hold Information 96 Hour Hold: 96 Hour Involuntary Admission: Yes 96 Hour Hold Ending Date: 05/10/23 96 Hour Hold Ending Time: 20:00 Attestations NPU Medical Necessity Statement*: Inpatient hospitalization is medically necessary and deemed to be the clinically appropriate intervention at this time. We will initiate medications and make changes as indicated.? ? His likely length of stay is 7-10 days. Coding Level of Care Code Acute Code for [facility] Fwd Diagnoses Psychotic disorder F29 Paranoid delusion F22
[2023-05-16] MEDS: magnesium hydroxide 30 mL UDC PO (19:48)
[2023-05-16] MEDS: paliperidone ER 6 mg Tablet PO (19:49)
[2023-05-16] MEDS: trazodone 50 mg Tablet PO (21:31)
[2023-05-16 21:45] VITALS: BP 133/86; PULSE 82; RESP 14; TEMP 36.7; O2SAT 99
[2023-05-17 06:00] VITALS: BP 124/86; PULSE 88; RESP 17; O2SAT 98
[2023-05-17] MEDS: paliperidone ER 3 mg Tablet PO (06:11)
[2023-05-17] MEDS: docusate sodium 100 mg Capsule PO (09:05)
[2023-05-17] MEDS: hyDROXYzine 25 mg Capsule 50 MG PO ×3 (09:05→20:47)
[2023-05-17] MEDS: escitalopram 10 mg Tablet PO (09:05)
--- NOTE | 2023-05-17 13:48 | W.PM.NPUPNS ---
Subjective NPU Subjective: Patient presented today continuing to report that things are going better than when he was admitted but that he is still struggling with his psychosis. He said he is still struggling with real versus paranoia/psychosis. Still having suicidal thoughts, but feeling medication is helping. Feels that people sometimes just see his tattoos and do not really see him. Mental Status Exam MSE Comments: This is an overweight white male in hospital scrubs with adequate grooming and intense eye contact. Significant tattooing on exposed skin including the face.No abnormal movements except for mild psychomotor retardation. Cooperative with exam in mild to moderate distress. Speech was decreased rate and volume. Mood described as depressed, affect congruent. Thought process linear with some notable cognitive slowing. Thought content: Patient endorsed suicidal but denied homicidal ideation, there was paranoia reported and paranoid and likely persecutory delusions noted. He endorsed auditory but denied visual hallucinations. Attention and concentration were mostly intact memory appeared somewhat reliable but none were formally tested. He is alert and oriented x3. Insight, judgment and impulse control were limited. Vitals/I&O/Wt Last Vital Signs Temp 98.1 F 05/16/23 21:45 Pulse 88 05/17/23 06:00 Resp 17 05/17/23 06:00 BP 124/86 05/17/23 06:00 Pulse Ox 98 05/17/23 06:00 O2 Del Method Room Air 05/17/23 06:00 Data NPU 05/11/23 12:30 05/06/23 18:52 A&P Assessment and plan (1) Psychotic disorder: (2) Paranoid delusion: Plan This is a 42-year-old male with a history of previous treatment for ADHD admitted with active psychotic symptoms with active paranoia and bizarre delusions. He is involuntarily hospitalized and we will continue to monitor the patient. He is currently refusing medications. 1.? ?Engage? patient in individual ,milieu, and group therapy ?2. ? Continue Invega to 9 mg daily with plan for IM invega Sustenna loading dose at 234mg 05/16/23. Continued Lexapro 10 mg to target depression. ?3. ? TO-15 minute checks on the unit. Court hearing for continued stay tommorow. ?4.? Recommend sober living treatment at the highest level of care to which the patient is willing to commit. Involuntary Hold Information 96 Hour Hold: 96 Hour Involuntary Admission: Yes 96 Hour Hold Ending Date: 05/10/23 96 Hour Hold Ending Time: 20:00 Attestations NPU Medical Necessity Statement*: Inpatient hospitalization is medically necessary and deemed to be the clinically appropriate intervention at this time. We will initiate medications and make changes as indicated.? ? His likely length of stay is 7-10 days. Coding Level of Care Code Acute Code for [facility] Fw Diagnoses Psychotic disorder F29 Paranoid delusion F22
[2023-05-17 14:00] VITALS: BP 113/76; PULSE 97; RESP 16; TEMP 36.6; O2SAT 98
[2023-05-17] MEDS: trazodone 50 mg Tablet PO (20:46)
[2023-05-17] MEDS: paliperidone ER 6 mg Tablet PO (20:47)
[2023-05-17 21:06] VITALS: BP 139/89; PULSE 85; RESP 17; TEMP 36.7; O2SAT 97
[2023-05-18 06:00] VITALS: BP 124/87; PULSE 103; RESP 18; TEMP 36.6; O2SAT 98
[2023-05-18] MEDS: docusate sodium 100 mg Capsule PO (09:50)
[2023-05-18] MEDS: paliperidone ER 3 mg Tablet PO (09:50)
[2023-05-18] MEDS: escitalopram 10 mg Tablet PO (09:51)
[2023-05-18] MEDS: hyDROXYzine 25 mg Capsule 50 MG PO ×3 (09:51→20:19)
--- NOTE | 2023-05-18 11:47 | W.PM.NPUPNS ---
Subjective NPU Subjective: Patient presented today reporting that things were status quo. He denied no worsening but does not necessarily feel significantly better. He was seeming more optimistic and open to talking about planning for discharge release understanding what discharge options we would be open to. We discussed collaborating 1 making sure that he had a good recovery founded safe place that would allow him to continue to work on his mental health. Mental Status Exam MSE Comments: This is an overweight white male in hospital scrubs with adequate grooming and intense eye contact. Significant tattooing on exposed skin including the face.No abnormal movements except for mild psychomotor retardation. Cooperative with exam in mild to moderate distress. Speech was decreased rate and volume. Mood described as depressed, affect congruent. Thought process linear with some notable cognitive slowing. Thought content: Patient endorsed suicidal but denied homicidal ideation, there was paranoia reported and paranoid and likely persecutory delusions noted. He endorsed auditory but denied visual hallucinations. Attention and concentration were mostly intact memory appeared somewhat reliable but none were formally tested. He is alert and oriented x3. Insight, judgment and impulse control were limited. Vitals/I&O/Wt Last Vital Signs Temp 97.8 F 05/18/23 06:00 Pulse 103 H 05/18/23 06:00 Resp 18 05/18/23 06:00 BP 124/87 05/18/23 06:00 Pulse Ox 98 05/18/23 06:00 O2 Del Method Room Air 05/18/23 06:00 Data NPU 05/11/23 12:30 05/06/23 18:52 A&P Assessment and plan (1) Psychotic disorder: (2) Paranoid delusion: Plan This is a 42-year-old male with a history of previous treatment for ADHD admitted with active psychotic symptoms with active paranoia and bizarre delusions. He is involuntarily hospitalized and we will continue to monitor the patient. He is currently refusing medications. 1.? ?Engage? patient in individual ,milieu, and group therapy ?2. ? Continue Invega to 9 mg daily with plan for IM invega Sustenna loading dose at 234mg 05/16/23. Continued Lexapro 10 mg to target depression. ?3. ? TO-15 minute checks on the unit. Court hearing for continued stay tommorow. ?4.? Recommend sober living treatment at the highest level of care to which the patient is willing to commit. Involuntary Hold Information 96 Hour Hold: 96 Hour Involuntary Admission: Yes 96 Hour Hold Ending Date: 05/10/23 96 Hour Hold Ending Time: 20:00 Attestations NPU Medical Necessity Statement*: Inpatient hospitalization is medically necessary and deemed to be the clinically appropriate intervention at this time. We will initiate medications and make changes as indicated.? ? His likely length of stay is 6-9 days. Coding Level of Care Code Acute Code for [facility] Fwd Diagnoses Psychotic disorder F29 Paranoid delusion F22
[2023-05-18 14:00] VITALS: BP 135/86; PULSE 83; RESP 16; TEMP 36.7; O2SAT 98
[2023-05-18] MEDS: nicotine 2 mg Gum BUCCAL (18:22)
[2023-05-18 20:11] VITALS: BP 127/88; PULSE 93; RESP 20; TEMP 36.5; O2SAT 98
[2023-05-18] MEDS: trazodone 50 mg Tablet PO (20:19)
[2023-05-18] MEDS: paliperidone ER 6 mg Tablet PO (20:19)
[2023-05-19 06:00] VITALS: BP 117/72; PULSE 95; RESP 18; TEMP 36.7; O2SAT 97
[2023-05-19] MEDS: escitalopram 10 mg Tablet PO (08:26)
[2023-05-19] MEDS: hyDROXYzine 25 mg Capsule 50 MG PO ×3 (08:26→21:09)
[2023-05-19] MEDS: docusate sodium 100 mg Capsule PO (08:26)
[2023-05-19] MEDS: paliperidone ER 3 mg Tablet PO (08:26)
--- NOTE | 2023-05-19 11:24 | W.PM.NPUPNS ---
Subjective NPU Subjective: Patient presented today reporting that he may be starting have a little improvement. Certainly was more engaging and somewhat brighter per staff. Less isolation. We discussed some of his workout routine and he was able to compensate without any clear signs of hesitancy and guardedness. He denies any side effects to the medication and endorsed a openness to working with the treatment team on discharge treatment possibilities. Mental Status Exam MSE Comments: This is an overweight white male in hospital scrubs with adequate grooming and intense eye contact. Significant tattooing on exposed skin including the face.No abnormal movements except for mild psychomotor retardation. Cooperative with exam in mild distress. Speech was decreased rate and volume. Mood described as okay I guess, affect congruent. Thought process linear with some limited cognitive slowing. Thought content: Patient endorsed suicidal but denied homicidal ideation, there was less paranoia reported and less paranoid and likely persecutory delusions noted. He endorsed auditory but denied visual hallucinations. Attention and concentration were mostly intact memory appeared somewhat reliable but none were formally tested. He is alert and oriented x3. Insight, judgment and impulse control were limited. Vitals/I&O/Wt Last Vital Signs Temp 98.0 F 05/19/23 06:00 Pulse 95 05/19/23 06:00 Resp 18 05/19/23 06:00 BP 117/72 05/19/23 06:00 Pulse Ox 97 05/19/23 06:00 O2 Del Method Room Air 05/19/23 06:00 Weight last 48 hrs Weight 95.708 kg Data NPU 05/11/23 12:30 05/06/23 18:52 A&P Assessment and plan (1) Psychotic disorder: (2) Paranoid delusion: Plan This is a 42-year-old male with a history of previous treatment for ADHD admitted with active psychotic symptoms with active paranoia and bizarre delusions. He is involuntarily hospitalized and we will continue to monitor the patient. He is currently refusing medications. 1.? ?Engage? patient in individual ,milieu, and group therapy ?2. ? Continue Invega to 9 mg daily with plan for IM invega Sustenna loading dose at 234mg 05/16/23. Continued Lexapro 10 mg to target depression. ?3. ? TO-15 minute checks on the unit. Court hearing for continued stay tommorow. ?4.? Recommend sober living treatment at the highest level of care to which the patient is willing to commit. Involuntary Hold Information 96 Hour Hold: 96 Hour Involuntary Admission: Yes 96 Hour Hold Ending Date: 05/10/23 96 Hour Hold Ending Time: 20:00 Attestations NPU Medical Necessity Statement*: Inpatient hospitalization is medically necessary and deemed to be the clinically appropriate intervention at this time. We will initiate medications and make changes as indicated.? ? His likely length of stay is 5-8 days. Coding Level of Care Code Acute Code for [facility] Fwd Diagnoses Psychotic disorder F29 Paranoid delusion F22
[2023-05-19 14:00] VITALS: RESP 16
[2023-05-19 21:02] VITALS: BP 117/83; PULSE 82; RESP 18; TEMP 36.8; O2SAT 98
[2023-05-19] MEDS: trazodone 50 mg Tablet PO (21:09)
[2023-05-19] MEDS: paliperidone ER 6 mg Tablet PO (21:09)
[2023-05-20 06:00] VITALS: BP 126/77; PULSE 91; RESP 20; TEMP 36.7; O2SAT 98
[2023-05-20] MEDS: paliperidone ER 3 mg Tablet PO (06:34)
[2023-05-20] MEDS: escitalopram 10 mg Tablet PO (08:34)
[2023-05-20] MEDS: hyDROXYzine 25 mg Capsule 50 MG PO ×3 (08:34→19:27)
[2023-05-20] MEDS: docusate sodium 100 mg Capsule PO (08:34)
--- NOTE | 2023-05-20 11:58 | P.NPUPN_ITS ---
Subjective NPU Subjective: Patient presented today reporting that he is feeling a bit better. He is actively working with the social work team for discharge options. He denied any side effects of the medications and reports that he feels like he is adjusting to them. He is appropriately worried about finding discharge options but actively assisting the social work team in their pursuit. Mental Status Exam MSE Comments: This is an overweight white male in hospital scrubs with adequate grooming and intense eye contact. Significant tattooing on exposed skin including the face.No abnormal movements except for mild psychomotor retardation. Cooperative with exam in mild distress. Speech was decreased rate and volume. Mood described as all right, affect congruent. Thought process linear with some limited cognitive slowing. Thought content: Patient endorsed suicidal but denied homicidal ideation, there was less paranoia reported and less paranoid and likely persecutory delusions noted. He endorsed auditory but denied visual hallucinations. Attention and concentration were mostly intact memory appeared somewhat reliable but none were formally tested. He is alert and oriented x3. Insight, judgment and impulse control were limited. Vitals/I&O/Wt Last Vital Signs Temp 98.1 F 05/20/23 06:00 Pulse 91 05/20/23 06:00 Resp 20 H 05/20/23 06:00 BP 126/77 05/20/23 06:00 Pulse Ox 98 05/20/23 06:00 O2 Del Method Room Air 05/19/23 06:00 Weight last 48 hrs Weight 95.708 kg Data NPU 05/11/23 12:30 05/06/23 18:52 A&P Assessment and plan (1) Psychotic disorder: (2) Paranoid delusion: Plan This is a 42-year-old male with a history of previous treatment for ADHD admitted with active psychotic symptoms with active paranoia and bizarre delusions. He is involuntarily hospitalized and we will continue to monitor the patient. He is currently refusing medications. 1.? ?Engage? patient in individual ,milieu, and group therapy ?2. ? Continue Invega to 9 mg daily with plan for IM invega Sustenna loading dose at 234mg 05/16/23. Continued Lexapro 10 mg to target depression. ?3. ? TO-15 minute checks on the unit. Court hearing for continued stay tommorow. ?4.? Recommend sober living treatment at the highest level of care to which the patient is willing to commit. Involuntary Hold Information 96 Hour Hold: 96 Hour Involuntary Admission: Yes 96 Hour Hold Ending Date: 05/10/23 96 Hour Hold Ending Time: 20:00 Attestations NPU Medical Necessity Statement*: Inpatient hospitalization is medically necessary and deemed to be the clinically appropriate intervention at this time. We will initiate medications and make changes as indicated.? ? His likely length of stay is 4-7 days. Coding Level of Care Code Acute Code for [facility] Fwd Diagnoses Psychotic disorder F29 Paranoid delusion F22
[2023-05-20 14:00] VITALS: BP 132/87; PULSE 95; RESP 20; TEMP 36.5; O2SAT 96
[2023-05-20] MEDS: nicotine 2 mg Gum BUCCAL (18:43)
[2023-05-20] MEDS: paliperidone ER 6 mg Tablet PO (19:27)
[2023-05-20 20:44] VITALS: BP 140/81; PULSE 80; RESP 20; TEMP 36.7; O2SAT 99
[2023-05-21 06:00] VITALS: BP 119/88; PULSE 88; RESP 18; TEMP 36.4; O2SAT 98
[2023-05-21] MEDS: paliperidone ER 3 mg Tablet PO (06:36)
[2023-05-21] MEDS: hyDROXYzine 25 mg Capsule 50 MG PO ×3 (09:01→20:06)
[2023-05-21] MEDS: escitalopram 10 mg Tablet PO (09:01)
[2023-05-21] MEDS: nicotine 2 mg Gum BUCCAL ×2 (09:01→15:48)
[2023-05-21] MEDS: docusate sodium 100 mg Capsule PO (09:01)
[2023-05-21 14:00] VITALS: BP 136/91; PULSE 94; RESP 16; TEMP 36.8; O2SAT 99
--- NOTE | 2023-05-21 18:53 | W.PM.NPUPNS ---
Subjective NPU Subjective: Patient presented today reporting that he was continuing to feel a little better each day. He is working with the social work team for appropriate discharge planning. He was inquisitive about how long he has to stay or when his 21-day hold would be ending and we discussed the fact that it does not have a specific time he has to stay but is based on his improvement. He denied any side effects to the medication. Mental Status Exam MSE Comments: This is an overweight white male in hospital scrubs with adequate grooming and intense eye contact. Significant tattooing on exposed skin including the face and tattoos as eyebrows. No abnormal movements except for improving mild psychomotor retardation. Cooperative with exam in mild decreasing distress. Speech was decreased rate and volume. Mood described as a little better, affect congruent. Thought process linear with some limited cognitive slowing. Thought content: Patient denied suicidal or homicidal ideation, there was less paranoia reported and less paranoid or persecutory delusions noted. He denied current auditory or visual hallucinations. Attention and concentration were mostly intact memory appeared somewhat reliable but none were formally tested. He is alert and oriented x3. Insight, judgment and impulse control were limited. Vitals/I&O/Wt Last Vital Signs Temp 98.3 F 05/21/23 22:00 Pulse 99 05/21/23 22:00 Resp 16 05/21/23 22:00 BP 136/83 05/21/23 22:00 Pulse Ox 97 05/21/23 22:00 O2 Del Method Room Air 05/21/23 22:00 Data NPU 05/11/23 12:30 05/06/23 18:52 A&P Assessment and plan (1) Psychotic disorder: (2) Paranoid delusion: Plan This is a 42-year-old male with a history of previous treatment for ADHD admitted with active psychotic symptoms with active paranoia and bizarre delusions. He is involuntarily hospitalized and we will continue to monitor the patient. He is currently refusing medications. 1.? ?Engage? patient in individual ,milieu, and group therapy ?2. ? Continue Invega to 9 mg daily with plan for IM invega Sustenna loading dose at 234mg 05/16/23. Continued Lexapro 10 mg to target depression. We will look to get the second dose of Invega Sustenna loading dose IM to deltoid 05/23/2023. ?3. ? TO-15 minute checks on the unit. Court hearing for continued stay tommorow. ?4.? Recommend sober living treatment at the highest level of care to which the patient is willing to commit. Involuntary Hold Information 96 Hour Hold: 96 Hour Involuntary Admission: Yes 96 Hour Hold Ending Date: 05/10/23 96 Hour Hold Ending Time: 20:00 Attestations NPU Medical Necessity Statement*: Inpatient hospitalization is medically necessary and deemed to be the clinically appropriate intervention at this time. We will initiate medications and make changes as indicated.? ? His likely length of stay is 3-6 days. Coding Level of Care Code Acute Code for g Fwd Diagnoses Psychotic disorder F29 Paranoid delusion F22
[2023-05-21] MEDS: paliperidone ER 6 mg Tablet PO (20:06)
[2023-05-21 22:00] VITALS: BP 136/83; PULSE 99; RESP 16; TEMP 36.8; O2SAT 97
[2023-05-22] MEDS: paliperidone ER 3 mg Tablet PO (05:58)
[2023-05-22 06:00] VITALS: BP 145/90; PULSE 98; RESP 17; O2SAT 98
[2023-05-22] MEDS: hyDROXYzine 25 mg Capsule 50 MG PO ×3 (09:13→20:09)
[2023-05-22] MEDS: escitalopram 10 mg Tablet PO (09:13)
[2023-05-22] MEDS: docusate sodium 100 mg Capsule PO (09:13)
[2023-05-22 14:03] VITALS: BP 149/89; PULSE 93; RESP 16; TEMP 36.7; O2SAT 96
--- NOTE | 2023-05-22 17:10 | P.NPUPN_ITS ---
Subjective NPU Subjective: Patient presented today reporting that he has a couple animals at home that he needs to take care of. Per staff's paranoia is reducing and he is demonstrating that in session with more personal information shared. He discussed that he has a hearing on June 24 and that concerns about him fleeing is the reason why he has the ankle monitor. He reports feeling better and denied psychosis. We discussed the likelihood of identifying discharge options in the next couple of days. Mental Status Exam MSE Comments: This is an overweight white male in hospital scrubs with adequate grooming and intense eye contact. Significant tattooing on exposed skin including the face and tattoos as eyebrows. No abnormal movements except for improving mild psychomotor retardation. Cooperative with exam in no acute distress. Speech was decreased rate and volume. Mood described as a little better, affect congruent. Thought process linear with some limited cognitive slowing. Thought content: Patient denied suicidal or homicidal ideation, there was less paranoia reported and no delusions noted. He denied current auditory or visual hallucinations. Attention and concentration were mostly intact memory appeared somewhat reliable but none were formally tested. He is alert and oriented x3. Insight, judgment and impulse control were limited. Vitals/I&O/Wt Last Vital Signs Temp 98.1 F 05/22/23 14:03 Pulse 93 05/22/23 14:03 Resp 16 05/22/23 14:03 BP 149/89 05/22/23 14:03 Pulse Ox 96 05/22/23 14:03 O2 Del Method Room Air 05/22/23 14:03 Data NPU 05/11/23 12:30 05/06/23 18:52 A&P Assessment and plan (1) Psychotic disorder: (2) Paranoid delusion: Plan This is a 42-year-old male with a history of previous treatment for ADHD admitted with active psychotic symptoms with active paranoia and bizarre delusions. He is involuntarily hospitalized and we will continue to monitor the patient. He is currently refusing medications. 1.? ?Engage? patient in individual ,milieu, and group therapy ?2. ? Continue Invega to 9 mg daily with plan for IM invega Sustenna loading dose at 234mg 05/16/23. Continued Lexapro 10 mg to target depression. We will look to get the second dose of Invega Sustenna loading dose IM to deltoid 05/23/2023. ?3. ? TO-15 minute checks on the unit. Court hearing for continued stay tommorow. ?4.? Recommend sober living treatment at the highest level of care to which the patient is willing to commit. Involuntary Hold Information 96 Hour Hold: 96 Hour Involuntary Admission: Yes 96 Hour Hold Ending Date: 05/10/23 96 Hour Hold Ending Time: 20:00 Attestations NPU Medical Necessity Statement*: Inpatient hospitalization is medically necessary and deemed to be the clinically appropriate intervention at this time. We will initiate medications and make changes as indicated.? ? His likely length of stay is 2-4 days. Coding Level of Care Code Acute Code for [facility] Fwd Diagnoses Psychotic disorder F29 Paranoid delusion F22
[2023-05-22] MEDS: paliperidone ER 6 mg Tablet PO (20:09)
[2023-05-22 21:25] VITALS: BP 128/82; PULSE 88; RESP 14; TEMP 36.6; O2SAT 98
[2023-05-23 06:00] VITALS: BP 113/83; PULSE 86; RESP 17; TEMP 36.6; O2SAT 96
[2023-05-23] MEDS: paliperidone ER 3 mg Tablet PO (06:01)
[2023-05-23] MEDS: hyDROXYzine 25 mg Capsule 50 MG PO (09:38)
[2023-05-23] MEDS: docusate sodium 100 mg Capsule PO (09:39)
[2023-05-23] MEDS: nicotine 2 mg Gum BUCCAL ×2 (09:39→13:36)
[2023-05-23] MEDS: escitalopram 10 mg Tablet PO (09:39)
[2023-05-23 14:00] VITALS: BP 123/87; PULSE 104; TEMP 37; O2SAT 96
[2023-05-23] MEDS: paliperidone palmitate 156 mg Syringe IM (14:05)
--- NOTE | 2023-05-23 15:06 | P.NPUDS_ITS ---
Diagnoses at Discharge Discharge Diagnosis (1) Psychotic disorder: Status: Acute (2) Paranoid delusion: Status: Acute Reason for Visit Reason for Visit: MHE, AMADO Brief History: History of Present Illness David Cohen is a 42 year old male who presented to the emergency department stating that he wished to . He was admitted to the neuropsychiat juliana unit for further evaluation and treatment involuntarily. He had reported that he has been having thoughts of killing himself for several weeks. He was reporting that he had left his home about 1 month ago stating that people were trying to hurt him. He had reported having lived with a friend afterwards for 3 weeks but had been truly homeless for about 1 week. He states that he has been repeatedly concerned that people are trying to shoot him dad and stated that he has been thinking about doing it himself in stead of him being shot by them. He had reported that he had felt that he had been poisoned and reported that he has been seeing things. The patient had reported no recent drug or alcohol use. His urine was negative for any drugs or alcohol. He reports that he has been on an ankle monitor because he was a threat to flee the state and stated that he has had numerous incarcerations for a myriad of offenses. He had reported recently attempting to work and stated that he had worked 1 day and felt that the people there had poisoned him. The patient was a less than adequate historian. Patient had reported significant weight loss stating that he had been concerned about other people poisoning him. Past psychiatric history: He had reported having 1 previous hospitalization psychiatrically. He denied any history of outpatient psychiatric treatment. Allergies: No known drug allergies medical history: None. Surgical history: Left hand reportedly crushed in a work-related injury. Current medications: None Legal history: He currently has an ankle monitor on and reports a history of multiple years spent in incarcerated. Drug and alcohol history: He had reported the use of alcohol in the past but reports no current use of alcohol or illicit drugs. He had intimated possible use of illicit drugs during his adolescence. Social history: He was raised in [place]. He had lived with his father after his parents are . He had dropped out of school. He had stated having some problems with learning and states that he had been placed on Ritalin for problems with his attention span. He has 1 brother and 2 stepsiblings. He reports that he is currently unemployed and has struggled with maintaining a job. He reports that he moved to [place] approximately 6 years ago. He did not endorse any history of sexual physical or emotional abuse. Hospital Course Hospital Course He slowly acclimated to the individual, group and milieu therapies. He presented with significant psychosis. He eventually was open to a trial of Lexapro and Invega. The Invega was changed over to the Invega Sustenna injection. He had significant improvement and worked with the social work team on his legal issues. He was able to work with the social work on discharge as well as other aftercare arrangements. He was able to contract for safety outside the hospital prior to discharge. During the hospitalization, patient had routine laboratory studies which were within normal limits except for few outliers. Additionally there was a general medical evaluation which was also within normal limits and revealed no new acute processes. At the time of discharge, he denied psychosis or lethality. Mood and anxiety were well managed. Patient endorsed a plan to avoid all drugs of abuse and fo llow-up with the aftercare recommendations of the treatment team. Patient was evaluated and deemed to be absent credible lethality, and had achieved the maximum benefit from an inpatient hospitalization, so was discharged. Involuntary Hold Information 96 Hour Hold: 96 Hour Involuntary Admission: Yes 96 Hour Hold Ending Date: 05/10/23 96 Hour Hold Ending Time: 20:00 Mental Status Exam MSE Comments: This is an overweight white male in hospital scrubs with adequate grooming and intense eye contact. Significant tattooing on exposed skin including the face and tattoos as eyebrows. No abnormal movements except for improving mild psychomotor retardation. Cooperative with exam in no acute distress. Speech was decreased rate and volume. Mood described as a little better, affect congruent. Thought process linear with some limited cognitive slowing. Thought content: Patient denied suicidal or homicidal ideation, there was less paranoia reported and no delusions noted. He denied current auditory or visual hallucinations. Attention and concentration were mostly intact memory appeared somewhat reliable but none were formally tested. He is alert and oriented x3. Insight, judgment and impulse control were limited. Discharge Data Studies Completed and Pending: Laboratory Results WBC 7.3 10^3/uL (4.0- 10.0) 05/11/23 12:30 RBC 5.04 10^6/uL (4.1 -5.3) 05/11/23 12:30 Hgb 15.0 g/dL (11.7-1 6.6) 05/11/23 12:30 Hct 46.9 % (42.0-52.0 ) 05/11/23 12: MCV 93.1 fl (80-94) 05/11/23 12:30 MCH 29.8 pg (28.0-34. 0) 05/11/23 12: MCHC 32.0 g/dL (30.0-3 6.0) 05/11/23 12: RDW 12.7 % (12.1-15.1 ) 05/11/23 12:30 Plt Count 219 10^3/cmm (130 -400) 05/11/23 12: MPV 9.8 fL (7.4-10.4) 05/11/23 12: Neut % (Auto) 67.8 % 05/11/23 12: Lymph % (Auto) 23.8 % 05/11/23 12: Ritchie % (Auto) 6.6 % 05/11/23 12: Eos % (Auto) 1.2 % 05/11/23 12:30 Baso % (Auto) 0.3 % 05/11/23 12: Neut # (Auto) 4.95 10^3/uL (1.8 -7.7) 05/11/23 12: Lymph # (Auto) 1.7 10^3/uL (0.8- 4.8) 05/11/23 12: Ritchie # (Auto) 0.5 10^3/uL (0.2- 0.9) 05/11/23 12: Eos # (Auto) 0.1 10^3/uL (0.0- 0.8) 05/11/23 12: Baso # (Auto) 0.0 10^3/uL (0.0- 0.1) 05/11/23 12: Nucleated RBC % (a uto) 0 % 05/11/23 12: Nucleated RBCs # 0.0 /100WBC 05/11/23 12:30 Sodium 138 mmol/L (136-1 45) 05/06/23 18:52 Potassium 3.3 mmol/L (3.5-5 .1) L 05/06/23 18:52 Chloride 102 mmol/L (98-10 7) 05/06/23 18:52 Carbon Dioxide 22 mmol/L (22-29) 05/06/23 18:52 Anion Gap 17.3 (5-19) 05/06/23 18:52 BUN 10 mg/dL (6-20) 05/06/23 18:52 Creatinine 0.7 mg/dL (0.7-1. 2) 05/06/23 18:52 GFR Calculation 123.7 mL/min (90- 130) 05/06/23 18:52 Glucose 83 mg/dL (65-115) 05/06/23 18:52 Calculated Osmolal ity 284 mOsm/kg (285- 295) L 05/06/23 18:52 Calcium 8.7 mg/dL (8.5-10 .5) 05/06/23 18:52 Total Bilirubin 0.3 mg/dL (0.15-1 .2) 05/06/23 18:52 AST 16 U/L (0-40) 05/06/23 18:52 ALT 15 U/L (0-41) 05/06/23 18:52 Alkaline Phosphata se 70 U/L (40-130) 05/06/23 18:52 Total Protein 7.0 g/dL (6.6-8.7 ) 05/06/23 18:52 Albumin 4.5 g/dL (3.5-5.2 ) 05/06/23 18:52 Globulin 2.5 g/dL (1.3-4.6 ) 05/06/23 18:52 Urine Color Straw (Yellow) 05/11/23 12:21 Urine Appearance Clear (CLEAR) 05/11/23 12:21 Urine pH 6 (5-7) 05/11/23 12:21 Ur Specific Gravit y 1.010 (1.005-1.0 30) 05/11/23 12:21 Urine Protein Neg (Negative) 05/11/23 12:21 Urine Glucose (UA) Norm (Normal) 05/11/23 12:21 Urine Ketones Negative (Negati ve) 05/11/23 12:21 Urine Blood Neg (Negative) 05/11/23 12:21 Urine Nitrate Negative (Negati ve) 05/11/23 12:21 Urine Bilirubin Neg (Negative) 05/11/23 12:21 Urine Urobilinogen Norm mg/dL (Negat melchor) 05/11/23 12:21 Ur Leukocyte Irish ase Negative (Negati ve) 05/11/23 12:21 Salicylates 0.5 mg/dL (3-10) L 05/06/23 18:52 Urine Opiates Scre en Negative ng/mL (N egative) 05/06/23 17:58 Acetaminophen < 5.0 ug/mL (10-3 0) L 05/06/23 18:52 Ur Barbiturates Sc reen Negative ng/mL (N egative) 05/06/23 17:58 Ur Phencyclidine S crn Negative ng/mL (N egative) 05/06/23 17:58 Ur Amphetamines Sc reen Negative ng/mL (N egative) 05/06/23 17:58 U Benzodiazepines Scrn Negative ng/mL (N egative) 05/06/23 17:58 Urine Cocaine Scre en Negative ng/mL (N egative) 05/06/23 17:58 U Marijuana (THC) Screen Negative ng/mL (N egative) 05/06/23 17:58 Ethyl Alcohol < 10 mg/dL (0-10) 05/06/23 18:52 Vitals: Last Vital Signs Temp 98.6 F 05/23/23 14:00 Pulse 104 H 05/23/23 14:00 Resp 17 05/23/23 06:00 BP 123/87 05/23/23 14:00 Pulse Ox 96 05/23/23 14:00 O2 Del Method Room Air 05/23/23 14:00 Discharge Plan Discharge Patient Disposition: Home Condition: Stable Prescriptions: New Invega Sustenna 234 mg/1.5 mL syringe 234 mg IM Q30D Qty: 1.5 1RF Rx Instructions: next injection 06/20/23 hydroxyzine pamoate 25 mg Capsule 50 mg PO TID 30 Days Qty: 120 1RF escitalopram oxalate 10 mg Tablet 10 mg PO DAILY 30 Days Qty: 30 1RF No Action No Known Home Medications Discharge Orders: Discharge Order (Routine); Ordered 05/23/23 Ordered By: Randall Rubio Referrals: [facility] [Outside] - 05/27/23 8:30 am (Initial appointment scheduled for 05/27/23 at 08:30 check in) Abi Brown DO [Physician] - 06/21/23 8:15 am (Establishing care.) Discharge Diet: Regular Discharge Activity: Resume usual activity Patient Instructions: Opioid Safety, Pain Management Discharge Attestations NPU Time Spent in Discharge Care*: less than 30 min Specific Discharge Activities: Specific discharge activities: educating patient, discussing with case briefer/social workers/dc planners, documenting/other paperwork and evaluating patient/reviewing data Coding Level of Care Code Acute [facility] DC note Diagnoses Psychotic disorder F29 Paranoid delusion F22
[2023-05-23 15:09] VITALS: BP 123/87; PULSE 104; TEMP 37; O2SAT 96
--- NOTE | 2023-05-23 15:28 | PC.NURSE ---
written discharge instruction discussed and left with patient. pt stated understanding and compliance. 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 pt personal belongings given to him he states everything is accounted for.
== END 2023-05-23 15:34 | disposition home or self-care (01) | DRG 885 ==
LOC: ER 20:50 → NP 21:00
PROVIDERS: Psychiatry & Neurology Psychiatry; Admitting Provider Psychiatry & Neurology Psychiatry; Emergency Provider Family Medicine; Visit Provider Psychiatry & Neurology Psychiatry
DX: F22 Delusional disorders (principal); R45.851 Suicidal ideations; Z59.00 Homelessness unspecified; G40.909 Epilepsy, unspecified, not intractable, without status epilepticus; F17.200 Nicotine dependence, unspecified, uncomplicated; F90.9 Attention-deficit hyperactivity disorder, unspecified type
CPT/HCPCS: 36415; 80053; 80306; 80307; 81003; 85025; 96372; 97150; 97165; 99238; 99285

== ENCOUNTER 2025-01-05 14:21 | Emergency (ER) | payer BC, MEDICAID, SELFPAY ==
[2025-01-05 14:31] VITALS: BP 139/95; PULSE 94; TEMP 36.7; O2SAT 99; BMI 29.8
--- NOTE | 2025-01-05 16:15 | W.ED.EXTPRO ---
HPI - Extremity Problem General: Chief complaint: Extremity Injury, Upper Stated complaint: R hand numb Time Seen by Provider: 01/05/25 15:48 Source: patient Mode of arrival: ambulatory Limitations: no limitations History of Present Illness: Patient is a 44-year-old male presents to ED today with complaint of numbness to his right fourth and fifth fingers. Symptoms have been present over the past 2 weeks or so. He states he does use his hands a lot as he works for a [employer] company. He has not noticed any swelling to the hand or digits. No redness, warmth, or signs of infection. No recent injury or trauma. MD Complaint: other (Numbness to right fourth and fifth fingers) Onset (ago): week(s) Pain Consistency: constant Location: right and upper extremity Quality: other (Numbness) Radiation: none Relieving factors: nothing Exacerbating factors: nothing Associated symptoms: Reports no associated symptoms; Deny fever(s) Related Data Home Medications ?Medication ?Instructions ?Recorded ?Confirmed No Known Home Medications 05/06/23 05/06/23 Previous Rx's ?Medication ?Instructions ?Recorded escitalopram oxalate 10 mg tablet 10 mg PO DAILY 30 days #30 tabs 05/23/23 hydroxyzine pamoate 25 mg capsule 50 mg (2 x 25 mg) PO TID 30 days 05/23/23 #120 caps paliperidone palmitate 234 mg/1.5 234 mg (1.5 mL) IM Q30D #1.5 mL 05/23/23 mL intramuscular syringe (Invega Sustenna) Allergies Allergy/AdvReac Type Severity Reaction Status Date / Time No Known Allergies Allergy Verified 01/05/25 14:36 Review of Systems Const: Denies: fever(s) Musc: Denies: neck pain, extremity pain, extremity swelling, joint pain or joint swelling Neuro: Reports: numbness in extremities and sensory changes; Denies: headache(s) or weakness in extremities PFS ED PFSH: Medical History Epilepsy Family History Grandfather Cancer colon Grandmother Cancer lung Denies family history of Diabetes CAD (coronary artery disease) Anesthesia complication Bleeding disorder Social History Smoking and tobacco/nicotine status: current every day tobacco/nicotine user Alcohol intake: never Substance/Drug Use: never Lives independently: Yes Marital status: Single Current occupational status: employed Physical Exam Const: COMMON NORMALS: no acute distress, average body habitus, no limitations, healthy appearing, alert and well nourished Extremity: COMMON NORMALS: normal to inspection, full ROM, capillary refill normal, no joint enlargement and no clubbing, cyanosis or edema GENERAL: Yes normal exam except as noted RIGHT UPPER EXTREMITY: Yes hand & digits Right hand and digits: Yes neurovascular exam (normal) and Yes tendon exam (normal) OTHER: reporting decreased sensation to the volar and palmar aspects of the right fourth and fifth digits; some degree of claw hand present; no edema/redness noted; pulses/cap refill all normal Neuro: COMMON NORMALS: moves all extremities and no focal motor deficits SENSORIUM/ORIENTATION: Yes alert Course Vital Signs: Vital signs: Vital Signs Temperature 98.1 F 01/05/25 14:31 Pulse Rate 94 01/05/25 14:31 Blood Pressure 139/95 01/05/25 14:31 Pulse Oximetry 99 01/05/25 14:31 Oxygen Delivery Me thod Room Air 01/05/25 14:31 MDM - Extremity (Nontraumatic) Medical Decision Making Patient here for what sounds to be ulnar neuropathy at the wrist. He does not have a primary care provider. We have case management set him up with these. Will try to get him nerve conduction studies performed outpatient and then he can follow-up with them for further evaluation and treatment options. At this time there is no life-threatening medical emergency and patient will be allowed discharge. 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 I will also try to have case management get you set up with a nerve conduction study based on today's visit but this may have to be set up through primary care. Print Language: Ukrainian Coding Level of Care Code ED [employer] for Estela Foreman
[2025-01-05 16:28] VITALS: BP 129/82; PULSE 82; O2SAT 98
--- NOTE | 2025-01-06 08:28 | DCPLANNER ---
Message sent to clinics for PCP and Neurology for Nerve conduction study-
--- NOTE | 2025-01-08 09:49 | DCPLANNER ---
messaged wpfm to est pcp
== END 2025-01-05 16:29 | disposition home or self-care (01) ==
PROVIDERS: Emergency Provider Physician Assistant
DX: G62.9 Polyneuropathy, unspecified (principal); Z72.0 Tobacco use
CPT/HCPCS: 99281